=== PATIENT | male | born 1955 | race Caucasian/White ===

== ENCOUNTER 2020-12-20 06:36 | Outpatient (CLI) | payer MEDICARE, SELFPAY ==
--- NOTE | 2020-12-20 07:14 | ECHO_ITS ---
Patient Info Name: Dex Talbot Age: 65 years : 1955 Gender: Male Ht: 73 in Wt: 206 lbs BSA: 2.21 m2 HR: 123 bpm BP: 133 / 109 mmHg Technical Quality: Good Exam Date: 12/20/2020 7:17 AM Exam Location: [facility] Patient Status: Outpatient Admit Date: 12/20/2020 Staff Ordering Physician: Chandu Napier DO Senior Foreman: Josr Benítez RDCS, RT Attending Provider: Chandu Napier DO Referring Physician: Karthikeyan DENIS; Exam Type: CA echo doppler color flow Study Info Indications I48.0 - Paroxysmal atrial fibrillation Complete two-dimensional, color flow and Doppler transthoracic echocardiogram is performed. Summary 1. Complete two-dimensional, color flow and Doppler transthoracic echocardiogram is performed. 2. Left ventricular chamber dimension is normal. 3. Left ventricular systolic function is normal, estimated at 55-60%. 4. There is mildly increased left ventricular wall thickness. 5. Left ventricular septal wall motion is abnormal with septal motion related to bundle branch block. 6. The left ventricular diastolic function is normal. 7. E/e' 7 is not elevated. 8. Right ventricular systolic function is mildly reduced and with abnormal TAPSE 1.5 cm. 9. Left atrial chamber dimension is moderately enlarged. 10. There is mild aortic valve sclerosis. 11. The mitral valve has mildly calcified annulus. 12. There is mild mitral valve regurgitation. 13. There is trace tricuspid valve regurgitation. 14. No pulmonary hypertension, estimated pulmonary arterial systolic pressure is 32 mmHg. 15. Dilated inferior vena cava with >50% collapse upon inspiration consistent with elevated right atrial pressure, 10 mmHg. 16. Atrial fibrillation. Left Ventricle E/e' 7 is not elevated. Atrial fibrillation. Left ventricular chamber dimension is normal. Left ventricular systolic function is normal, estimated at 55-60%. There is mildly increased left ventricular wall thickness. Left ventricular septal wall motion is abnormal with septal motion related to bundle branch block. The left ventricular diastolic function is normal. Right Ventricle Right ventricular systolic function is mildly reduced and with abnormal TAPSE 1.5 cm. Right ventricular chamber dimension is normal. Left Atria Left atrial chamber dimension is moderately enlarged. Right Atria Right atrial chamber dimension is normal. Aortic Valve The aortic valve is trileaflet. There is mild aortic valve sclerosis. There is no aortic valve stenosis. There is no aortic valve regurgitation. Pulmonic Valve There is no pulmonic regurgitation. Mitral Valve The mitral valve has mildly calcified annulus. There is no mitral valve stenosis. There is mild mitral valve regurgitation. Tricuspid Valve There is trace tricuspid valve regurgitation. No pulmonary hypertension, estimated pulmonary arterial systolic pressure is 32 mmHg. Pericardium/Pleural There is no pericardial effusion. Inferior Vena Cava Dilated inferior vena cava with >50% collapse upon inspiration consistent with elevated right atrial pressure, 10 mmHg. Aorta The aortic root size at the sinus of Valsalva is normal. Left Ventricular Outflow Tract Name Value Normal LVOT 2D
== END 2020-12-20 06:37 | disposition home or self-care (01) ==
PROVIDERS: PCP Internal Medicine; Visit Provider Internal Medicine Cardiovascular Disease
DX: I48.0 Paroxysmal atrial fibrillation (principal); I34.0 Nonrheumatic mitral (valve) insufficiency; I36.1 Nonrheumatic tricuspid (valve) insufficiency; I35.8 Other nonrheumatic aortic valve disorders
CPT/HCPCS: 93306

== ENCOUNTER → 2021-02-22 07:39 | Outpatient (CLI) | payer MEDICARE, SELFPAY ==
[2021-02-22 19:22] LABS: SARS-CoV-2 RNA PCR Negative
== END ==
PROVIDERS: PCP Internal Medicine; Visit Provider Internal Medicine Gastroenterology
DX: Z01.812 Encounter for preprocedural laboratory examination (principal); Z20.822 Contact with and (suspected) exposure to COVID-19
CPT/HCPCS: C9803; U0003; U0005

== ENCOUNTER 2021-02-25 00:58 | Day surgery (SDC) | payer MEDICARE, SELFPAY ==
[2021-02-15 09:59] VITALS: BMI 26.4
[2021-02-25] VITALS (9 sets, daily range): BP systolic 104–135; BP diastolic 78–102; PULSE 92–127; RESP 18–26; TEMP 36.4; O2SAT 97–100; BMI 26.7
[2021-02-25] MEDS: LACTATED RINGERS 1,000 ML 150 ML IV CONT (10:24)
--- NOTE | 2021-02-25 10:42 | WPDANESEPPF ---
Anes - Initial Pre Proc Eval Procedure: Operation Date: 02/25/21 10:45 Proposed Procedures p Screening Colonoscopy - Parviz Hampton MD Date/Time: 02/25/21 10:42 Surgeon: Parviz Hampton MD Pre Op Diagnosis: hx colon polyps Patient Data Age: 65 Gender: M Height: 6 ft 1 in Weight: 92 kg Last Vital Signs Temp 36.4 C L 02/25/21 10:18 Pulse 94 02/25/21 10:18 Resp 18 02/25/21 10:18 BP 135/102 H 02/25/21 10:18 Pulse Ox 99 02/25/21 10:18 Allergies Allergy/AdvReac Type Severity Reaction Status Date / Time No Known Allergies Allergy Mild Verified 02/25/21 10:14 Home Medications Medication Instructions Recorded Confirmed Type multivit with min-folic 1 tablet PO DAILY 09/15/19 02/25/21 History acid-lutein 400 mcg-250 mcg chewable tablet apixaban [Eliquis] 5 mg PO BID 02/15/21 02/25/21 History atorvastatin 80 mg PO DAILY 02/15/21 02/25/21 History carvedilol 6.25 mg PO BID 02/15/21 02/25/21 History levetiracetam 750 mg PO BID 02/15/21 02/25/21 History Patient hx anesthesia problems: none Family hx anesthesia problems: none PMFSH Past Medical History Medical History Current moderate episode of major depressive disorder without prior episode Essential hypertension Expressive aphasia H/O completed stroke Hx of retinal detachment Hyperlipidemia LDL goal <70 Paroxysmal atrial fibrillation Protein S deficiency Seizure disorder Social History Social History Smoking packs per day: 1 Smoking cigarettes per day: 20.0 Years smoked: 25 Smoking pack-years: 25.00 Smoking status: Former smoker Tobacco type: cigarettes Alcohol intake: current Drinks per week: 21 Living arrangements: with family Spiritual care concerns: No Anes - Eval Final PreProcedure Day of Procedure 02/25/21 10:42 Patient weight: overweight Heart: regular rate and rhythm Lungs: clear to auscultation Airway: Mallampati scale class II Neurological: alert and oriented Last oral intake: >/= 8 hours ASA classification: III Emergent: no Anesthetic plan: proceed Anesthesia type and monitoring: general GIVS and standard monitoring Informed Consent: The patient's anesthetic plan and its attendant risks and benefits were discussed with the patient/family/POA. Questions were solicited and answers provided to the satisfaction of the patient/family/POA.
--- NOTE | 2021-02-25 10:46 | PM.HPGS ---
History of Present Illness History of Present Illness Consent: Risks, benefits, and alternatives have been discussed and questions answered. Patient agrees to proceed with procedure. Chief complaint: hx colon polyps Narrative: Dex Talbot is a 65 year old male with colon polyps 7 years ago. Review of Systems Constitutional: Constitutional: Denies headache(s) and Denies weakness Eyes: Eyes: Denies blurry vision ENT: Reports Normal hearing present, Denies headache(s) and Denies neck pain Cardiovascular: Cardiovascular: Denies chest pain and Denies dyspnea Respiratory: Respiratory: Denies dyspnea Gastrointestinal: Gastrointestinal: Reports no additional gastrointestinal complaints Genitourinary: Genitourinary: Denies dysuria Musculoskeletal: Musculoskeletal: Denies neck pain Integumentary/Breasts: Skin/Breast: Denies dry skin Neurologic: Reports Normal hearing present, Denies headache(s) and Denies weakness Psychiatric: Psychiatric: Denies anxiety Endocrine: Endocrine: Denies change in body appearance Hematologic/Lymphatic: Hematologic/Lymphatic: Denies easy bleeding Allergic/Immunologic: Allergic/Immunologic: Denies urticaria PMFSH Past Medical History Medical History (Updated 02/25/21 @ 10:46 by Parviz Hampton MD) Colon polyp Current moderate episode of major depressive disorder without prior episode Essential hypertension Expressive aphasia H/O completed stroke Hx of retinal detachment Hyperlipidemia LDL goal <70 Paroxysmal atrial fibrillation Protein S deficiency Seizure disorder Social History Social History Smoking packs per day: 1 Smoking cigarettes per day: 20.0 Years smoked: 25 Smoking pack-years: 25.00 Smoking status: Former smoker Tobacco type: cigarettes Alcohol intake: current Drinks per week: 21 Living arrangements: with family Spiritual care concerns: No Meds Home Medications and Allergies Home Medications Medication Instructions Recorded Confirmed Type multivit with min-folic 1 tablet PO DAILY 09/15/19 02/25/21 History acid-lutein 400 mcg-250 mcg chewable tablet apixaban [Eliquis] 5 mg PO BID 02/15/21 02/25/21 History atorvastatin 80 mg PO DAILY 02/15/21 02/25/21 History carvedilol 6.25 mg PO BID 02/15/21 02/25/21 History levetiracetam 750 mg PO BID 02/15/21 02/25/21 History Allergies Allergy/AdvReac Type Severity Reaction Status Date / Time No Known Allergies Allergy Mild Verified 02/25/21 10:14 Vital Signs Vital Signs - 24 hr 02/25/21 10:18 Temperature 97.5 F L Pulse Rate 94 Respiratory Rate 18 Blood Pressure 135/102 H Pulse Oximetry 99 Exam Const: General: comfortable and no acute distress HENMT: General nose exam: Normal nares present Eyes: General: appearance normal, both eyes and all related structures Neck: Neck: no JVD Resp: Auscultation: clear to auscultation bilaterally Cardio: Rate: regular rate Rhythm: regular rhythm GI: Inspection: non-distended GI Palp: Yes Soft to palpation Skin: General skin exam: normal color Neuro: General: gait normal Speech: normal speech Extrem: General: normal to inspection Psych: Mental Status: mental status grossly normal Assessment and Plan Assessment and plan (1) Colon polyp: Code(s): K63.5 - Polyp of colon Status: Acute Assessment and Plan: colonoscopy
[2021-02-25] MEDS: METOPROLOL TARTRATE INJ 5 MG/5 ML VIAL IV PUSH (12:00)
--- NOTE | 2021-02-25 12:27 | SUR.PHASEII ---
Heart rate 92 after IV Metoprolol. Ok to discharge home per Dr. Costello (anesthesiology).
== END 2021-02-25 12:30 | disposition home or self-care (01) ==
PROVIDERS: PCP Internal Medicine; Visit Provider Internal Medicine Gastroenterology
PROC: 0DJD8ZZ Inspection of Lower Intestinal Tract, Via Natural or Artificial Opening Endoscopic (ICD-10-PCS; CPT 45378; principal; 2021-02-25 10:45)
DX: Z12.11 Encounter for screening for malignant neoplasm of colon (principal); D12.3 Benign neoplasm of transverse colon; D12.0 Benign neoplasm of cecum; K57.30 Diverticulosis of large intestine without perforation or abscess without bleeding; I10 Essential (primary) hypertension; I69.320 Aphasia following cerebral infarction; E78.5 Hyperlipidemia, unspecified; I48.0 Paroxysmal atrial fibrillation; D68.59 Other primary thrombophilia; R56.9 Unspecified convulsions; F32.89 Other specified depressive episodes; Z87.891 Personal history of nicotine dependence; Z79.02 Long term (current) use of antithrombotics/antiplatelets
CPT/HCPCS: 45385; 88305; C9803; J2704; J7120; U0003; U0005

== ENCOUNTER 2022-07-02 07:56 | Outpatient (CLI) | payer MEDICARE, SELFPAY ==
--- NOTE | ~2022-07-02 | NM_ITS ---
EXAMINATION: NM ekaterina stress w perfusion DATE: 07/02/2022 10:01 CDT INDICATION: Dyspnea. TECHNIQUE: Rest images were obtained following intravenous administration of 10 mCi Tc99m tetrofosmin (Myoview). The patient was infused intravenously with Lexiscan (regadenoson). Then, 34.7 mCi Tc99m t etrofosmin (Myoview) was administered intravenously, and stress images were obtained. Data was recons tructed into short axis and horizontal and vertical long axis SPECT images. Gated SPECT images were a lso obtained. COMPARISON: None. FINDINGS: There is no definite reversible or fixed perfusion abnormality to suggest ischemia or infar ction. There is no segmental wall motion abnormality. Left ventricular ejection fraction measures 6 3%. IMPRESSION: 1. No definite ischemia or infarct. 2. Normal left ventricular ejection fraction measuring 63%. Reviewed, dictated and finalized at location B.
--- NOTE | 2022-07-02 08:59 | EST_ITS ---
Patient Info Name: Dex Talbot Age: 66 years : 1955 Gender: Male Ht: 73 in Wt: 200 lbs BSA: 2.17 m2 Exam Date: 07/02/2022 9:03 AM Exam Location: [facility] Stress Patient Status: Outpatient Admit Date: 07/02/2022 Staff Ordering Physician: Chandu Napier DO Attending Provider: Chandu Napier DO Exercise Technologist: Josr Benítez RDCS, RT Exercise Physician: Chandu Napier DO Exam Type: CA stress ekaterina w NM Study Info A regadenoson stress test was performed. Summary 1. 1. Negative lexiscan stress test for ischemic ST changes by ECG criteria. 2. 2. Stable hemodynamics throughout the test. 3. 3. Nuclear scan to follow and will be reported separately. Please correlate with it. 4. 4. Patient informed of the above results. Protocol: Lexiscan Stress ECG Details Stage: REST Duration (min): 1 min : 54 sec HR (bpm): 100 SBP (mmHg): 135 DBP (mmHg): 91 Stage: REST Duration (min): 9 min : 0 sec HR (bpm): 105 SBP (mmHg): 135 DBP (mmHg): 91 Stage: STAGE 1 Duration (min): 1 min : 0 sec HR (bpm): 107 SBP (mmHg): 157 DBP (mmHg): 110 Stage: RECOVERY Duration (min): 1 min : 0 sec HR (bpm): 121 SBP (mmHg): 157 DBP (mmHg): 110 Stage: RECOVERY Duration (min): 2 min : 0 sec HR (bpm): 124 SBP (mmHg): 158 DBP (mmHg): 110 Stage: RECOVERY Duration (min): 2 min : 47 sec HR (bpm): 119 SBP (mmHg): 159 DBP (mmHg): 111 Rest HR: 105 bpm Peak HR: 133 bpm Rest Sys BP: 135 mmHg Peak Sys BP: 159 mmHg Max Pred HR: 153 bpm % Max Pred HR: 87 % Target HR: 130 bpm Max RPP: 21,147 bpm*mmHg Termination Reason: Completed protocol Cardiac Symptoms: Shortness of breath Total Time: 1 min : 0 sec Rest Dunn BP: 91 mmHg Peak Dunn BP: 111 mmHg Total Dose: 0.4 mg Resting ECG Atrial fibrillation. Stress ECG No ST changes. Arrhythmias None. Report Signatures
== END 2022-07-02 07:57 | disposition home or self-care (01) ==
PROVIDERS: PCP Internal Medicine; Visit Provider Internal Medicine Cardiovascular Disease
DX: R06.09 Other forms of dyspnea (principal)
CPT/HCPCS: 78452; 93017; A9502; J2785

== ENCOUNTER 2022-07-24 18:09 | Inpatient (IN) | payer MEDICARE, SELFPAY ==
[2022-07-24] VITALS (21 sets, daily range): BP systolic 126–183; BP diastolic 70–100; PULSE 44–51; RESP 9–19; TEMP 36.6–36.8; O2SAT 93–100
--- NOTE | ~2022-07-24 | CT_ITS ---
EXAMINATION: CT brain wo con INDICATION: Head injury on blood thinners COMPARISON: None TECHNIQUE: Standard unenhanced head CT. The dose-length product (DLP) was 681.00 mGy-cm. The mA was a djusted according to patient size. Iterative reconstruction technique was employed. FINDINGS: There is no acute intraparenchymal hemorrhage. No evidence of mass lesion. No evidence of a cute infarction. Again noted is an old infarct in the left middle cerebral artery distribution. There is mild periventricular and subcortical hypodensity probably related to small vessel ischemic diseas e. There is mild prominence of the sulci and ventricles related to cerebral atrophy. Intracranial jacoby cified cerebral atherosclerosis is noted. There are no extra-axial collections. There is no mass effe ct or midline shift. Changes in the globes are likely from ocular lens surgery. There is a right fron carlos scalp hematoma. The visualized sinuses and mastoid air cells are well aerated. IMPRESSION: 1. Right frontal scalp hematoma without acute intracranial abnormality. 2. Age related findings. 3. Chronic infarct in the left middle cerebral artery distribution. Reviewed, dictated and finalized at location A.
--- NOTE | ~2022-07-24 | CT_ITS ---
EXAMINATION: CT brain wo con DATE: 07/24/2022 18:49 INDICATION: Head injury. TECHNIQUE: Computed tomography (CT) of the head was performed without intravenous contrast. The mA wa s adjusted according to patient size. Iterative reconstruction technique was employed. The dose-lengt h product was 681.00 mGy-cm. COMPARISON: Head CT 06/22/2017 FINDINGS: There is old infarct in left frontotemporal parietal region and left insula. There is no in tracranial hemorrhage, acute infarction, or abnormal intracranial mass lesion. There is mild ex vacuo dilatation of left lateral ventricle. There are likely changes of ocular lens replacement surgeries. There is a right frontal lateral scalp hematoma. There is mild mucosal thickening in the paranasal s inuses. The mastoid air cells are normal. IMPRESSION: 1. Old infarct in the expected distribution of left middle cerebral artery. Reviewed, dictated and finalized at location A.
--- NOTE | ~2022-07-24 | CT_ITS ---
EXAMINATION: CTA chest PE protocol DATE: 07/24/2022 20:48 INDICATION: Syncope. TECHNIQUE: Computed tomography angiography (CTA) of the chest was performed with 100 mL Omnipaque-350 intravenous contrast timed to evaluate the pulmonary arteries. Coronal maximum intensity projection 3D-reconstructions were created by the technologist. Automated exposure control and iterative reconst ruction technique were employed. The dose-length product was 438.74 mGy-cm. COMPARISON: Chest 2 views 07/24/2022 FINDINGS: The lungs demonstrate mild atelectasis. There is smooth septal thickening, consistent mild pulmonary edema. No pleural effusion. There is left atrial enlargement of the heart. There are babcock ry artery calcifications. No pericardial effusion. There is no pulmonary embolus. There is mild bilat eral hilar lymphadenopathy. There is bilateral gynecomastia. There is mild thoracic spondylosis. IMPRESSION: 1. No pulmonary embolus. 2. Mild pulmonary edema. 3. Mild bilateral hilar lymphadenopathy, likely reactive. 4. Left atrial enlargement of the heart. Reviewed, dictated and finalized at location A.
--- NOTE | ~2022-07-24 | CT_ITS ---
EXAMINATION: CT facial & cervical spine wo DATE: 07/24/2022 18:49 INDICATION: Head injury. TECHNIQUE: Computed tomography (CT) of the maxillofacial region and cervical spine was performed with out intravenous contrast. Automated exposure control and iterative reconstruction technique were empl oyed. The dose-length product was 462.95 mGy-cm. COMPARISON: None FINDINGS: MAXILLOFACIAL CT: There is a right frontal lateral scalp hematoma. There are likely changes of ocular lens replacement surgeries. There is right cheek soft tissue swelling. There is mild mucosal thickening in the paranas al sinuses. There are periapical lucencies at multiple maxillary teeth. Bone alignment is normal. No fracture. CERVICAL SPINE CT: There is kyphosis of cervical spine. Vertebral body heights are normal. There is mildly decreased dis c height at C3-C4 and C4-C5, moderately decreased disc height at C5-C6, and mildly decreased disc hei ght at C6-C7. The following disc levels are specifically discussed: C2-C3: There is no uncovertebral joint osteoarthritis. There is mild bilateral facet joint osteoarthr itis. There is no neural foraminal stenosis. There is no central canal stenosis. C3-C4: There is moderate bilateral uncovertebral joint osteoarthritis. There is severe left facet pratibha nt osteoarthritis. There is mild right and moderate left neural foraminal stenosis. There is mild stuart tral canal stenosis. C4-C5: There is mild right and severe left uncovertebral joint osteoarthritis. There is mild right an d severe left facet joint osteoarthritis. There is moderate left neural foraminal stenosis. There is mild central canal stenosis. C5-C6: There is severe right and mild left uncovertebral joint osteoarthritis. There is moderate righ t facet joint osteoarthritis. There is moderate right and mild left neural foraminal stenosis. There is mild central canal stenosis. C6-C7: There is mild bilateral uncovertebral joint osteoarthritis. There is mild bilateral facet join t osteoarthritis. There is no neural foraminal stenosis. There is mild central canal stenosis. C7-T1: There is no uncovertebral joint osteoarthritis. There is severe bilateral facet joint osteoart hritis. There is mild left neural foraminal stenosis. There is no central canal stenosis. IMPRESSION: 1. No fracture. 2. Moderate cervical spondylosis. Reviewed, dictated and finalized at location A.
--- NOTE | ~2022-07-24 | XR_ITS ---
EXAMINATION: XR chest 2V DATE: 07/24/2022 19:19 INDICATION: Lightheadedness. Fall. TECHNIQUE: Frontal and lateral views of the chest were obtained. COMPARISON: Chest single view 06/22/2017 FINDINGS: There is mild atelectasis in the lower lung zones. No pleural effusion or pneumothorax. Car diomegaly is noted. IMPRESSION: 1. Mild atelectasis in the lower lung zones. 2. Cardiomegaly. Reviewed, dictated and finalized at location A.
--- NOTE | 2022-07-24 18:58 | ECG_ITS ---
Measurements Intervals [place] Rate: 46 P: 37 VT: 183 QRS: 59 QRSD: 96 T: 60 QT: 520 QTc: 458 Interpretive Statements SINUS BRADYCARDIA POSSIBLE LEFT ATRIAL ENLARGEMENT [-0.1mV P-WAVE IN V1/V2] CANNOT RULE OUT SEPTAL MYOCARDIAL INFARCTION , OF INDETERMINATE AGE [40+ ms Q WAVE IN V1/V2] NO PREVIOUS ECG AVAILABLE FOR COMPARISON Electronically Signed On 07-25-2022 13:55:33 CDT by Brant Escalera M.D.
--- NOTE | 2022-07-24 19:12 | ED.HEATRA ---
HPI - Head Injury General Chief complaint: Head Injury Stated complaint: fall, head injury Time Seen by Provider: 07/24/22 18:29 History of Present Illness HPI Narrative: Patient is a 66-year-old male with a history of paroxysmal atrial fibrillation, prior CVA on Eliquis here for evaluation after syncopal episode. Patient states that he went from sitting to standing when he felt lightheaded, fell down and hit his head on the floor. He denies losing consciousness. States that he now has swelling under his right eye and into his right forehead in addition to a small laceration to his right scalp. Patient has never had a syncopal episode in the past. Tetanus is up-to-date. He saw Dr. Napier, cardiology, in office 2 days ago and had his metoprolol dosing halved to due to low heart rate. Denies any preceding chest pain, shortness of breath, palpitations, headaches. Related Data Home Medications Medication Instructions Recorded Confirmed multivit with min-folic 1 tablet PO DAILY 09/15/19 07/25/22 acid-lutein 400 mcg-250 mcg chewable tablet (Centrum Silver) atorvastatin 80 mg tablet (Lipitor) 80 mg PO DAILY 07/25/22 07/25/22 Allergies Allergy/AdvReac Type Severity Reaction Status Date / Time No Known Allergies Allergy Mild Verified 07/24/22 18:33 Review of Systems Review of Systems: Gen: Reports syncopal episode. Eyes: Denies eye pain or visual change ENT: Denies congestion Respiratory: Denies shortness of breath or cough CV: Denies chest pain or palpitations GI: Denies abdominal pain nausea, emesis or diarrhea : denies burning, urgency, frequency or hematuria Musculoskeletal: Denies back pain or muscle pain Neuro: Denies numbness, tingling, weakness or focal weakness Skin: Denies rash Except as documented, all other systems reviewed and negative [facility] Past Medical History Medical History Colon polyp Current moderate episode of major depressive disorder without prior episode Essential hypertension Expressive aphasia H/O completed stroke Hx of retinal detachment Hyperlipidemia LDL goal <70 Paroxysmal atrial fibrillation Protein S deficiency Seizure disorder Family History Family History (Updated 07/25/22 @ 00:41 by SINCERE Zhou) Mother Heart disease Diabetes mellitus Son History of blood clots Social History Social History Smoking packs per day: 2 Smoking cigarettes per day: 40.0 Years smoked: 30 Smoking pack-years: 60.00 Smoking status: Former smoker Tobacco type: cigarettes Second hand tobacco smoke exposure: No Smoking end date: 10/05/88 Alcohol intake: current Drinks per week: 18 Substance use: never Substance use type: does not use Spiritual care concerns: No Has the Lack of Transportation Kept You From Medical Appointments or From Getting Medications?: No Within the Past 12 Months, Were You Worried Whether Your Food Would Run Out Before You Got Money to Buy More?: Never True What is Your Housing Situation Today?: I Have Housing Are You Worried That in the Next 2 Months, You May Not Have Your Own Housing to Live In?: No Do You Have Trouble Paying Your Heating Or Electricity Bill?: No Do You Have Trouble Paying For Medicines?: No Are You Currently Unemployed and Looking for Work?: No Highest Level of Education Completed: High School Diploma/GED Do You Have Trouble With Childcare or the Care of a Family Member?: No Exam Narrative: APPEARANCE: Well appearing, no pain in distress, well-nourished. Head: Patient has a large hematoma to the right forehead and underneath his right eye. EYES: PERRLA/EOMI, conjunctivae clear NOSE: No nasal drainage EARS: External ear normal in appearance THROAT: Oropharynx is clear. Mucous membranes are moist. NECK: Supple. No adenopathy, no masses. RESPIRATORY: Airway patent, respirations no
[2022-07-24 19:58] LABS: Basophils Percent Auto 0.4 % (0.2-1.2); Eosinophils Absolute Auto 0.1 K/mm3 (0-0.3); Eosinophils Percent Auto 1.4 % (0-4.4); Hematocrit 41.6 % (42.0-52.0); Hemoglobin 13.8 g/dL (14.0-18.0); Immature Granulocyte Absolute 0.02 K/mm3 (0.00-0.031); Immature Granulocyte Percent A 0.2 % (0-0.5); Lymphocytes Absolute Auto 1.84 K/mm3 (0.9-3.2); Lymphocytes Percent Auto 20.5 % (18.3-44.2); Mean Corpuscular HGB Conc 33.2 g/dl (32-36); Mean Corpuscular Hemoglobin 31.9 pg (26-34); Mean Corpuscular Volume 96.1 fl (80-100); Mean Platelet Volume 10.7 fl (7.4-10.4); Monocytes Absolute Auto 0.8 K/mm3 (0.1-0.6); Monocytes Percent Auto 8.6 % (2.6-8.5); Neutrophils Absolute Auto 6.2 K/mm3 (1.3-6.7); Neutrophils Percent Auto 68.9 % (45.5-73.1); Platelet Count Result 204 k/mm3 (150-375); Red Blood Count 4.33 M/mm3 (4.6-6.20)
[2022-07-24 20:07] LABS: Alanine Aminotransferase 28 U/L (6-50); Albumin Level 4.4 g/dL (3.5-5.1); Alkaline Phosphatase 70 U/L (38-126); Anion Gap 15 mmol/L (8-16); Aspartate Amino Transferase 29 U/L (17-59); Bilirubin,Total 0.5 mg/dL (0.2-1.3); Blood Urea Nitrogen 7 mg/dL (9-20); Calcium 9.1 mg/dL (8.4-10.2); Carbon Dioxide 26 mmol/L (22-30); Chloride 101 mmol/L (98-107); Estimated CRCL calculation 88 ml/min; Estimated Glomerular Filt Rate > 60; Glucose 97 mg/dL (65-110); Potassium 3.8 mmol/L (3.4-5.0); Sodium 142 mmol/L (137-145)
[2022-07-24 20:09] LABS: INR 1.3; Partial Thromboplastin Time 33.5 SECONDS (22.3-36.8); Prothrombin Time 15.5 Seconds (11.1-14.7)
[2022-07-24 20:17] LABS: D Dimer 2.57 ug/mL (<0.48)
--- NOTE | 2022-07-24 21:14 | PM.IMHP ---
H&P: HPI History of Present Illness Date/Time: 07/24/22 21:14 Chief Complaint: Near-syncope Narrative: This is a 66-year-old male with past medical history significant for atrial fibrillation, rate controlled and anticoagulated, patient has been undergoing medications adjustment he was have visiting at a local bar when he collapsed he was able to catch himself before by holding his arms out however he struck his face on the way down according to patient he did not lose consciousness. 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 In emergency room patient was found to be bradycardic. Patient has been admitted for further evaluation management and treatment. [facility] Past Medical History Medical History Colon polyp Current moderate episode of major depressive disorder without prior episode Essential hypertension Expressive aphasia H/O completed stroke Hx of retinal detachment Hyperlipidemia LDL goal <70 Paroxysmal atrial fibrillation Protein S deficiency Seizure disorder Family History Family History (Updated 07/25/22 @ 00:41 by SINCERE Zhou) Mother Heart disease Diabetes mellitus Son History of blood clots Social History Social History Smoking packs per day: 2 Smoking cigarettes per day: 40.0 Years smoked: 30 Smoking pack-years: 60.00 Smoking status: Former smoker Tobacco type: cigarettes Second hand tobacco smoke exposure: No Smoking end date: 10/05/88 Alcohol intake: current Drinks per week: 18 Substance use: never Substance use type: does not use Spiritual care concerns: No Has the Lack of Transportation Kept You From Medical Appointments or From Getting Medications?: No Within the Past 12 Months, Were You Worried Whether Your Food Would Run Out Before You Got Money to Buy More?: Never True What is Your Housing Situation Today?: I Have Housing Are You Worried That in the Next 2 Months, You May Not Have Your Own Housing to Live In?: No Do You Have Trouble Paying Your Heating Or Electricity Bill?: No Do You Have Trouble Paying For Medicines?: No Are You Currently Unemployed and Looking for Work?: No Highest Level of Education Completed: High School Diploma/GED Do You Have Trouble With Childcare or the Care of a Family Member?: No Meds Home Medications and Allergies Home Medications Medication Instructions Recorded Confirmed Type multivit with min-folic 1 tablet PO DAILY 09/15/19 07/25/22 History acid-lutein 400 mcg-250 mcg chewable tablet (Centrum Silver) apixaban 5 mg tablet (Eliquis) 5 mg PO BID #180 tabs 02/11/22 07/25/22 Rx levetiracetam 750 mg tablet 750 mg PO BID #180 tabs 03/31/22 07/25/22 Rx famotidine 20 mg tablet 20 mg PO DAILY #90 tabs 05/28/22 07/25/22 Rx flecainide 100 mg tablet 100 mg PO BID #180 tabs 07/02/22 07/25/22 Rx metoprolol tartrate 25 mg tablet 12.5 mg PO BID #30 tabs 07/21/22 07/25/22 Rx atorvastatin 80 mg tablet (Lipitor) 80 mg PO DAILY 07/25/22 07/25/22 History Allergies Allergy/AdvReac Type Severity Reaction Status Date / Time No Known Allergies Allergy Mild Verified 07/24/22 18:33 Vital Signs Vital Signs - 24 hr 07/24/22 18:14 07/24/22 19:26 07/24/22 19:27 Temperature 97.9 F Pulse Rate 50 L 46 L 46 L Respiratory Rate 18 10 L 16 Blood Pressure 183/100 H 155/87 H Pulse Oximetry 99 Oxygen Delivery Room Air 07/24/22 19:28 07/24/22 19:30 07/24/22 19:31 Temperature Pulse Rate 45 L 46 L 46 L Respiratory Rate 13 9 L 12 Blood Pressure 150/85 H 146/85 H Pulse Oximetry Oxygen Delivery 07/24/22 19:34 07/24/22 19:44
[2022-07-24 23:15] LABS: SARS-CoV-2 RNA PCR Negative
[2022-07-25] VITALS (13 sets, daily range): BP systolic 113–161; BP diastolic 53–96; PULSE 55–122; RESP 16–20; TEMP 36.5–37.3; O2SAT 94–99; BMI 26.7
--- NOTE | 2022-07-25 | ECHO_ITS ---
Patient Info Name: Dex Talbot Age: 66 years : 1955 Gender: Male Ht: 73 in Wt: 202 lbs BSA: 2.18 m2 HR: 106 bpm BP: 154 / 78 mmHg Heart Rhythm: Atrial Flutter Technical Quality: Fair Exam Date: 07/25/2022 7:47 AM Exam Location: [facility] Card Pulmonary Patient Status: Outpatient Admit Date: 07/24/2022 Staff Ordering Physician: Chandu Napier DO Pharmacist Aide: Nataly Alvarado RDCS Attending Provider: Ray Qiu MD Referring Physician: Karthikeyan DENIS; Exam Type: CA echo doppler color flow Study Info Indications R55 - Syncope and collapse Complete two-dimensional, color flow and Doppler transthoracic echocardiogram is performed. Summary 1. Complete two-dimensional, color flow and Doppler transthoracic echocardiogram is performed. 2. Left ventricular chamber dimension is normal. 3. Left ventricular systolic function is normal, estimated at 60-65%. 4. There is mildly increased left ventricular wall thickness. 5. The left ventricular diastolic function is abnormal. 6. E/e' 12 is mildly elevated. 7. There is mild aortic valve sclerosis. 8. No pulmonary hypertension, estimated pulmonary arterial systolic pressure is 32 mmHg. Left Ventricle E/e' 12 is mildly elevated. Left ventricular chamber dimension is normal. Left ventricular systolic function is normal, estimated at 60-65%. There is mildly increased left ventricular wall thickness. The left ventricular diastolic function is abnormal. Right Ventricle Right ventricular systolic function is normal and with normal TAPSE 1.8 cm. Right ventricular chamber dimension is normal. Left Atria Left atrial chamber dimension is normal. Right Atria Right atrial chamber dimension is normal. Aortic Valve The aortic valve is trileaflet. There is mild aortic valve sclerosis. There is no aortic valve stenosis. There is no aortic valve regurgitation. Pulmonic Valve There is no pulmonic regurgitation. Mitral Valve There is no mitral valve stenosis. There is no mitral valve regurgitation. Tricuspid Valve There is no tricuspid valve regurgitation. No pulmonary hypertension, estimated pulmonary arterial systolic pressure is 32 mmHg. Pericardium/Pleural There is no pericardial effusion. Inferior Vena Cava Normal inferior vena cava with >50% collapse upon inspiration consistent with normal right atrial pressure, 5 mmHg. Aorta The aortic root size at the sinus of Valsalva is normal. Left Ventricular Outflow Tract Name Value Normal LVOT Doppler LVOT Peak Gradient 4 mmHg LVOT Mean Gradient 2 mmHg LVOT VTI 17 cm LVOT VTI/AV VTI Ratio 0.7 Pulmonic Valve Name Value Normal RVOT Doppler RVOT Peak Gradient 2 mmHg PV Doppler PV Peak Gradient 3 mmHg Mi
--- NOTE | 2022-07-25 00:45 | ADMGEN ---
This patient, Dex Talbot, was admitted to IMU Room 206-02. Patient/family oriented to hospital policies and general routines including ID bracelet, bed and alarms, visiting hours, pain management, procedures, bathroom and other care routines, personal items, smoking policy, room service/diet, and visiting hours. Information on how to activate the Rapid Response Team has been discussed. Patient/Family are encouraged to report perceived risks to care and to ask questions if they do not understand what they are told or what they should do.
--- NOTE | 2022-07-25 08:13 | PM.CNCAR ---
Assessment and Plan Assessment and plan (1) Paroxysmal atrial fibrillation: Code(s): I48.0 - Paroxysmal atrial fibrillation Status: Acute Assessment and Plan: [id number] 4. On Eliquis.He went back into atrial fib/flutter now. He has not had Flecainide or Metoprolol since yesterday morning last dose. Resume lower dose of Flecainide 50 mg BID and resume Metoprolol Tartate 12.5 mg BID. EKG now. Check echo. (2) Hyperlipidemia LDL goal <70: Code(s): E78.5 - Hyperlipidemia, unspecified Status: Acute Assessment and Plan: On Atorvastatin. (3) Essential hypertension: Code(s): I10 - Essential (primary) hypertension Status: Acute Assessment and Plan: Stable. (4) Syncope: Code(s): R55 - Syncope and collapse Status: Acute Assessment and Plan: Either due to orthostatic syncope or seizure? HR is not slow enough to cause syncope. (5) Bradycardia: Code(s): R00.1 - Bradycardia, unspecified Status: Acute Assessment and Plan: HR as low as 40's bpm when in sinus rhythm. Decrease Flecainide 50 mg BID. Monitor HR today. History of Present Illness History of Present Illness Consult date/time: 07/25/22 08:13 Reason For Visit: syncope, bradycardia Narrative: 66 yr old man who who is my regular cardiology patient and a patient of Dr. Smith presents to ER for syncope. 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 States he was standing and passed out for a second and hit the floor on his face. Since starting Flecainide he noted more regular heart beats and no longer have SHEPHERD walking to his mailbox.? Previously, he had a stroke in 2017 prior to going on Eliquis, probably related to PAF.? He has some residual right sided weakness and some expressive aphasia. He can walk 1 mile without any problems. Reports he quit drinking coffee and has less palpitations. His apple watch shows he is having twice a day HR up to 120's then it would go back to 70 bpm later in the day.? Diltiazem caused some swelling and light colored stools so he stopped taking it.? Denies chest pain, sob, orthopnea, PND, edema, dizziness. Cardiovascular Procedures Echo/MUGA:: 12/20/20 Echo: EF 55-60%, mild LVH, RV dysfunction with TAPSE 1.5 cm, mod LAE, mild MR, trace TR. Electrophysiology:: 07/21/22 EKG: Sinus bradycardia at 43 bpm, QTc 441 ms. 07/11/22 EKG: Atrial fibrillation at 94 bpm, QTc 456 ms. 12/04/20 EKG: Atrial fibrillation at 128 bpm. 07/21/17 26 days event monitor shows predominant rhythm is sinus rhythm. HR range 45-177 bpm; average 66 bpm; 4% atrial fib burden with 20 episodes, longest 10 hours and fastest 175 bpm. Stress Tests:: 07/02/22 Lexiscan myoview: Negative. 11/23/17 MRI brain: Old infarct of left parietal lobe. Review of Systems Review of Systems: All systems reviewed & are unremarkable except as noted in HPI and below Constitutional: Constitutional: Reports as per HPI, Denies chills and Denies fever(s) Cardiovascular: Cardiovascular: Denies as per HPI, Denies chest pain, Denies irregular heart rhythm and Denies leg edema Respiratory: Respiratory: Denies as per HPI and Denies dyspnea Gastrointestinal: Gastrointestinal: Reports as per HPI and Denies abdominal pain Genitourinary: Genitourinary: Reports as per HPI and Denies dysuria Musculoskeletal: Musculoskeletal: Reports as per HPI Neurologic: Reports as per HPI, Reports dizziness and Reports syncope PMFSH Past Medical History Medical History Colon polyp Current moderate episode of major depressive disorder without prior episode Essential hypertension Expressive aphasia H/O completed stroke Hx of retinal detachment Hyperlipidemia LDL goal <70 Paroxysmal atrial fibrillation Protein S deficiency Seizure d
--- NOTE | 2022-07-25 08:23 | ECG_ITS ---
Measurements Intervals [place] Rate: 104 P: MA: 0 QRS: 34 QRSD: 101 T: 34 QT: 393 QTc: 518 Interpretive Statements ATRIAL FIBRILLATION WITH RAPID VENTRICULAR RESPONSE MINIMAL ST DEPRESSION [0.025+ mV ST DEPRESSION] ABNORMAL RHYTHM ECG COMPARED TO ECG 07/24/2022 19:29:53 ATRIAL FIBRILLATION REPLACES SINUS RHYTHM Electronically Signed On 07-25-2022 14:06:11 CDT by Brant Escalera M.D.
--- NOTE | 2022-07-25 12:20 | PM.IMPN ---
Progress Note: A&P Assessment and Plan (1) Postural dizziness with near syncope: Code(s): R42 - Dizziness and giddiness; R55 - Syncope and collapse Status: Acute Assessment and Plan: Appreciate Cardiology input. Med medications have been adjusted. Will continue to monitor. Workup still pending. (2) Sinus bradycardia: Code(s): R00.1 - Bradycardia, unspecified Status: Acute (3) Paroxysmal atrial fibrillation: Code(s): I48.0 - Paroxysmal atrial fibrillation Status: Acute (4) Gastro-esophageal reflux disease without esophagitis: Onset Date: 04/01/19 Code(s): K21.9 - Gastro-esophageal reflux disease without esophagitis Status: Acute (5) Prostate cancer: Code(s): C61 - Malignant neoplasm of prostate Status: Acute (6) Seizure disorder: Code(s): G40.909 - Epilepsy, unspecified, not intractable, without status epilepticus Status: Acute Subjective Date/time seen: 07/25/22 12:20 feeling better. Exam Narrative: General: alert and oriented Psych: appropriate mood nad affect Eyes: PERRLA Neck: Trachea midline, no new lesions Skin: no changes Lungs: CTA Cardiac: Normal S1,S2, no MGR ABD: soft, nd, nt, nbs Ext: no new lesions, no cce Vasc: Pulses intact Objective Data Vital Signs Vital Signs: Vital Signs - 24 hr 07/24/22 18:14 07/24/22 19:26 07/24/22 19:27 Temperature 97.9 F Pulse Rate 50 L 46 L 46 L Respiratory Rate 18 10 L 16 Blood Pressure 183/100 H 155/87 H Pulse Oximetry 99 Oxygen Delivery Room Air 07/24/22 19:28 07/24/22 19:30 07/24/22 19:31 Temperature Pulse Rate 45 L 46 L 46 L Respiratory Rate 13 9 L 12 Blood Pressure 150/85 H 146/85 H Pulse Oximetry Oxygen Delivery 07/24/22 19:34 07/24/22 19:44 07/24/22 19:44 Temperature Pulse Rate 51 L 46 L 49 L Respiratory Rate 19 Blood Pressure 158/88 H 150/85 H 148/85 H Pulse Oximetry Oxygen Delivery 07/24/22 19:44 07/24/22 21:30 07/24/22 19:35 Temperature 98.3 F Pulse Rate 46 L 46 L 46 L Respiratory Rate 16 15 Blood Pressure 158/88 H 137/80 Pulse Oximetry 96 Oxygen Delivery 07/24/22 19:45 07/24/22 19:47 07/24/22 20:17 Temperature Pulse Rate 44 L 47 L 47 L Respiratory Rate 16 14 16 Blood Pressure 140/83 133/77 Pulse Oximetry Oxygen Delivery 07/24/22 20:18 07/24/22 20:30 07/24/22 20:45 Temperature Pulse Rate 47 L 45 L 51 L Respiratory Rate 16 16 14 Blood Pressure 126/74 Pulse Oximetry 97 Oxygen Delivery 07/24/22 22:12 07/24/22 22:15 07/24/22 22:30 Temperature Pulse Rate 46 L 45 L 47 L Respiratory Rate 13 11 L 11 L Blood Pressure Pulse Oximetry 94 93 93 Oxygen Delivery 07/24/22 22:45 07/24/22 23:00 07/25/22 00:00 Temperature 98.2 F Pulse Rate 47 L 48 L 87 Respiratory Rate 12 12 20 Blood Pressure 142/70 H 113/53 L Pulse Oximetry 100 98 99 Oxygen Delivery 07/25/22 00:00 07/25/22 00:00 07/25/22 02:00 Temperature 97.8 F Pulse Rate 55 L 93 Respiratory Rate 18 Blood Pressure 150/65 H Pulse Oximetry 99 99 Oxygen Delivery Room Air 07/25/22 03:42 07/25/22 04:00 07/25/22 04:00 Temperature 99.1 F Pulse Rate 101 H 108 H Respiratory Rate 20 Blood Pressure 154/78 H Pulse Oximetry 99 99 Oxygen Delivery Room Air 07/25/22 05:51 07/25/22 08:00 Temperature 97.7 F Pulse Rate 106 H 104 H Respiratory Rate 18 Blood Pressure 161/96 H Pulse Oximetry 97 Oxygen Delivery Intake/Output Intake/Output: Intake & Output 07/22/22 07/23/22 07/24/22 07/25/22 23:59 23:59 23:59 23:59 Intake Total 240 Output Total 1050 Balance -810 Meds/Results Medications: Active Medications Generic Name Dose Route Start Last Admin Trade Name Freq PRN Reason Stop Dose Admin Apixaban 5 mg 07/25/22 09:00 Apixaban 5 Mg Tablet PO Q12HR [facility] Atorvastatin Calcium 80 mg 07/25/22 09:00 Atorvastatin 40 Mg Ta
[2022-07-25] MEDS: METOPROLOL TARTRATE 12.5 MG TABLET PO ×2 (13:23→20:06)
[2022-07-25] MEDS: APIXABAN 5 MG TABLET PO ×2 (13:23→20:06)
[2022-07-25] MEDS: FLECAINIDE ACETATE 50 MG TABLET PO ×2 (13:24→20:06)
[2022-07-25] MEDS: ATORVASTATIN 40 MG TABLET 80 MG PO (13:24)
--- NOTE | 2022-07-25 16:31 | PC.NURSE ---
This patient, Dex Talbot, was transferred to [facility] on 07/25/22 at 1631. Personal belongings sent with patient. Report given to Aneudy ACKERMAN. Appropriate documentation sent with patient.
[2022-07-26] VITALS (15 sets, daily range): BP systolic 122–149; BP diastolic 85–91; PULSE 10–113; RESP 12–20; TEMP 36.7; O2SAT 92–98
[2022-07-26] MEDS: METOPROLOL TARTRATE 12.5 MG TABLET PO ×2 (08:02→10:02)
[2022-07-26] MEDS: FLECAINIDE ACETATE 50 MG TABLET PO ×2 (08:02→10:01)
[2022-07-26] MEDS: APIXABAN 5 MG TABLET PO ×2 (08:03→20:14)
[2022-07-26] MEDS: ATORVASTATIN 40 MG TABLET 80 MG PO (08:03)
--- NOTE | 2022-07-26 09:11 | PM.PNCARD ---
Progress Note: A&P Assessment and Plan (1) Paroxysmal atrial fibrillation: Code(s): I48.0 - Paroxysmal atrial fibrillation Status: Acute Assessment and Plan: [id number] 4. On Eliquis.He went back into atrial fib/flutter now. Since still in atrial fib, increase Flecainide 100 mg BID and increase Metoprolol Tartate 25 mg BID. Once he cardioverts, then can reduce Metoprolol 12.5 mg BID. He has 30 day event monitor on. If he cardioverts by this afternoon, may d/c home and f/u with me in 1-2 weeks. (2) Hyperlipidemia LDL goal <70: Code(s): E78.5 - Hyperlipidemia, unspecified Status: Acute Assessment and Plan: On Atorvastatin. (3) Essential hypertension: Code(s): I10 - Essential (primary) hypertension Status: Acute Assessment and Plan: Stable. (4) Syncope: Code(s): R55 - Syncope and collapse Status: Acute Assessment and Plan: Either due to orthostatic syncope or seizure? HR is not slow enough to cause syncope. (5) Bradycardia: Code(s): R00.1 - Bradycardia, unspecified Status: Acute Subjective Date/time seen: 07/26/22 09:11 Interval history: Denies dizziness or chest pain or sob. Exam Const: General: cooperative, healthy appearing and comfortable HENMT: Face and sinus: other (bruise on right side of face under eye) Resp: Auscultation: clear to auscultation bilaterally, no crackles, no rales, no rhonchi and no wheezes Cardio: Rate: tachycardic Rhythm: abnormal rhythm Heart sounds: no murmurs Peripheral pulses: dorsalis pedis present GI: GI Palp: No abdominal tenderness and Yes Soft to palpation Neuro: General: oriented to person, oriented to place and oriented to time Extrem: Right lower extremity: no edema Left lower extremity: no edema Objective Data Vital Signs Vital Signs: Vital Signs - 24 hr 07/25/22 13:23 07/25/22 13:24 07/25/22 12:00 Temperature Pulse Rate 110 H 110 H 122 H Respiratory Rate Blood Pressure Pulse Oximetry Oxygen Delivery 07/25/22 16:00 07/25/22 16:00 07/25/22 19:51 Temperature 98.1 F 97.7 F Pulse Rate 110 H 100 99 Respiratory Rate 18 16 Blood Pressure 141/90 H 131/93 H Pulse Oximetry 95 94 Oxygen Delivery 07/25/22 20:06 07/25/22 20:06 07/25/22 20:00 Temperature Pulse Rate 99 99 Respiratory Rate Blood Pressure Pulse Oximetry Oxygen Delivery Room Air 07/25/22 20:03 07/26/22 00:02 07/26/22 04:04 Temperature Pulse Rate 96 101 H 94 Respiratory Rate Blood Pressure Pulse Oximetry Oxygen Delivery 07/26/22 04:00 07/26/22 08:02 07/26/22 08:02 Temperature 98.1 F Pulse Rate 90 113 H 113 H Respiratory Rate 12 Blood Pressure 130/85 Pulse Oximetry 92 Oxygen Delivery 07/26/22 08:05 Temperature Pulse Rate Respiratory Rate Blood Pressure Pulse Oximetry Oxygen Delivery Room Air Intake/Output Intake/Output: Intake & Output 07/23/22 07/24/22 07/25/22 07/26/22 23:59 23:59 23:59 23:59 Intake Total 1320 400 Output Total 1950 Balance -630 400 Meds/Results Medications: Active Medications Generic Name Dose Route Start Last Admin Trade Name Freq PRN Reason Stop Dose Admin Apixaban 5 mg 07/25/22 09:00 07/26/22 08:03 Apixaban 5 Mg Tablet PO 5 mg Q12HR DEEDEE Administration Atorvastatin Calcium 80 mg 07/25/22 09:00 07/26/22 08:03 Atorvastatin 40 Mg Tablet PO 80 mg DAILY DEEDEE Administration Flecainide Acetate 100 mg 07/26/22 09:00 Flecainide Acetate 100 Mg Tablet PO Q12HR DEEDEE Metoprolol Tartrate 25 mg 07/26/22 09:00 Metoprolol Tartrate 25 Mg Tablet PO Q12HR DEEDEE Perflutren Lipid Microsphere 0 ml 07/25/22 06:40 Perflutren Lipid Microspheres 1.5 Ml Vial Diluted To 10 Ml Total Volume IV PUSH 07/27/22 06:40 ONCE PRN adequate visualization Protocol Radiology Results: ITS Impressions Head CT 07/24/22 18:54 I
--- NOTE | 2022-07-26 10:15 | PM.IMPN ---
Progress Note: A&P Assessment and Plan (1) Postural dizziness with near syncope: Code(s): R42 - Dizziness and giddiness; R55 - Syncope and collapse Status: Acute Assessment and Plan: Appreciate Cardiology input. Med medications have been adjusted. Will continue to monitor. once patient cardioverted he can be discharged home. Patient is still in atrial fibrillation. (2) Sinus bradycardia: Code(s): R00.1 - Bradycardia, unspecified Status: Acute (3) Paroxysmal atrial fibrillation: Code(s): I48.0 - Paroxysmal atrial fibrillation Status: Acute (4) Gastro-esophageal reflux disease without esophagitis: Onset Date: 04/01/19 Code(s): K21.9 - Gastro-esophageal reflux disease without esophagitis Status: Acute (5) Prostate cancer: Code(s): C61 - Malignant neoplasm of prostate Status: Acute (6) Seizure disorder: Code(s): G40.909 - Epilepsy, unspecified, not intractable, without status epilepticus Status: Acute Subjective Date/time seen: 07/26/22 10:15 No new complaints Exam Narrative: General: alert and oriented Psych: appropriate mood nad affect Eyes: PERRLA Neck: Trachea midline, no new lesions Skin: no changes Lungs: CTA Cardiac: Normal S1,S2, no MGR ABD: soft, nd, nt, nbs Ext: no new lesions, no cce Vasc: Pulses intact Objective Data Vital Signs Vital Signs: Vital Signs - 24 hr 07/25/22 13:23 07/25/22 13:24 07/25/22 12:00 Temperature Pulse Rate 110 H 110 H 122 H Respiratory Rate Blood Pressure Pulse Oximetry Oxygen Delivery 07/25/22 16:00 07/25/22 16:00 07/25/22 19:51 Temperature 98.1 F 97.7 F Pulse Rate 110 H 100 99 Respiratory Rate 18 16 Blood Pressure 141/90 H 131/93 H Pulse Oximetry 95 94 Oxygen Delivery 07/25/22 20:06 07/25/22 20:06 07/25/22 20:00 Temperature Pulse Rate 99 99 Respiratory Rate Blood Pressure Pulse Oximetry Oxygen Delivery Room Air 07/25/22 20:03 07/26/22 00:02 07/26/22 04:04 Temperature Pulse Rate 96 101 H 94 Respiratory Rate Blood Pressure Pulse Oximetry Oxygen Delivery 07/26/22 04:00 07/26/22 08:02 07/26/22 08:02 Temperature 98.1 F Pulse Rate 90 113 H 113 H Respiratory Rate 12 Blood Pressure 130/85 Pulse Oximetry 92 Oxygen Delivery 07/26/22 08:05 07/26/22 08:00 07/26/22 10:01 Temperature Pulse Rate 102 H 90 Respiratory Rate Blood Pressure Pulse Oximetry Oxygen Delivery Room Air 07/26/22 10:02 Temperature Pulse Rate 90 Respiratory Rate Blood Pressure Pulse Oximetry Oxygen Delivery Intake/Output Intake/Output: Intake & Output 07/23/22 07/24/22 07/25/22 07/26/22 23:59 23:59 23:59 23:59 Intake Total 1320 400 Output Total 1950 Balance -630 400 Meds/Results Medications: Active Medications Generic Name Dose Route Start Last Admin Trade Name Freq PRN Reason Stop Dose Admin Apixaban 5 mg 07/25/22 09:00 07/26/22 08:03 Apixaban 5 Mg Tablet PO 5 mg Q12HR DEEDEE Administration Atorvastatin Calcium 80 mg 07/25/22 09:00 07/26/22 08:03 Atorvastatin 40 Mg Tablet PO 80 mg DAILY DEEDEE Administration Flecainide Acetate 100 mg 07/26/22 21:00 Flecainide Acetate 100 Mg Tablet PO Q12HR DEEDEE Metoprolol Tartrate 25 mg 07/26/22 21:00 Metoprolol Tartrate 25 Mg Tablet PO Q12HR DEEDEE Perflutren Lipid Microsphere 0 ml 07/25/22 06:40 Perflutren Lipid Microspheres 1.5 Ml Vial Diluted To 10 Ml Total Volume IV PUSH 07/27/22 06:40 ONCE PRN adequate visualization Protocol Radiology Results: ITS Impressions Head/Cervical Spine/Facial Bones CT 07/24/22 18:58 IMPRESSION: 1. No fracture. 2. Moderate cervical spondylosis. Chest X-Ray 07/24/22 19:22 IMPRESSION: 1. Mild atelectasis in the lower lung zones. 2. Cardiomegaly. Chest CTA 07/24/22 20:56 IMPRESSION: 1. No pulmonary embol
[2022-07-26] MEDS: FLECAINIDE ACETATE 100 MG TABLET PO (20:13)
[2022-07-26] MEDS: METOPROLOL TARTRATE 25 MG TABLET PO (20:14)
[2022-07-27] VITALS: PULSE 86
[2022-07-27 04:00] VITALS: PULSE 100
[2022-07-27 05:42] VITALS: BP 132/101; PULSE 100; RESP 20; TEMP 36.5; O2SAT 96
--- NOTE | 2022-07-27 07:44 | PM.PNCARD ---
Progress Note: A&P Assessment and Plan (1) Paroxysmal atrial fibrillation: Code(s): I48.0 - Paroxysmal atrial fibrillation Status: Acute Assessment and Plan: [id number] 4. On Eliquis.He went back into atrial fib/flutter now. Since still in atrial fib, increase Flecainide 100 mg BID and increase Metoprolol Tartate 25 mg BID. Once he cardioverts, then can reduce Metoprolol 12.5 mg daily. He has 30 day event monitor on. Still in atrial fib, but may d/c home and f/u with me in 1 week. If he remains in atrial fib at that time, will schedule for outpatient DC cardioversion. (2) Hyperlipidemia LDL goal <70: Code(s): E78.5 - Hyperlipidemia, unspecified Status: Acute Assessment and Plan: On Atorvastatin. (3) Essential hypertension: Code(s): I10 - Essential (primary) hypertension Status: Acute Assessment and Plan: Stable. (4) Syncope: Code(s): R55 - Syncope and collapse Status: Acute Assessment and Plan: Either due to orthostatic syncope or seizure? HR is not slow enough to cause syncope. (5) Bradycardia: Code(s): R00.1 - Bradycardia, unspecified Status: Acute Subjective Date/time seen: 07/27/22 07:44 Interval history: He is ready to go home. Denies chest pain or sob or dizziness. Exam Const: General: cooperative, healthy appearing and comfortable HENMT: Face and sinus: other (bruise on right side of face under eye) Resp: Auscultation: clear to auscultation bilaterally, no crackles, no rales, no rhonchi and no wheezes Cardio: Rate: tachycardic Rhythm: abnormal rhythm Heart sounds: no murmurs Peripheral pulses: dorsalis pedis present GI: GI Palp: No abdominal tenderness and Yes Soft to palpation Neuro: General: oriented to person, oriented to place and oriented to time Extrem: Right lower extremity: no edema Left lower extremity: no edema Objective Data Vital Signs Vital Signs: Vital Signs - 24 hr 07/26/22 08:02 07/26/22 08:02 07/26/22 08:05 Temperature Pulse Rate 113 H 113 H Respiratory Rate Blood Pressure Pulse Oximetry Oxygen Delivery Room Air 07/26/22 08:00 07/26/22 10:01 07/26/22 10:02 Temperature Pulse Rate 102 H 90 90 Respiratory Rate Blood Pressure Pulse Oximetry Oxygen Delivery 07/26/22 08:00 07/26/22 12:00 07/26/22 14:00 Temperature 98.0 F Pulse Rate 106 H 98 Respiratory Rate 16 Blood Pressure 122/85 Pulse Oximetry 98 Oxygen Delivery Room Air 07/26/22 16:00 07/26/22 19:55 07/26/22 20:13 Temperature Pulse Rate 101 H 101 H 10 L Respiratory Rate 16 Blood Pressure Pulse Oximetry 98 Oxygen Delivery Room Air 07/26/22 20:14 07/26/22 20:25 07/26/22 20:00 Temperature 98.1 F Pulse Rate 101 H 98 97 Respiratory Rate 20 Blood Pressure 149/91 H Pulse Oximetry 98 Oxygen Delivery 07/27/22 00:00 07/27/22 05:42 07/27/22 04:00 Temperature 97.7 F Pulse Rate 86 100 100 Respiratory Rate 20 Blood Pressure 132/101 H Pulse Oximetry 96 Oxygen Delivery Intake/Output Intake/Output: Intake & Output 07/24/22 07/25/22 07/26/22 07/27/22 23:59 23:59 23:59 23:59 Intake Total 1320 2630 300 Output Total 1950 Balance -630 2630 300 Meds/Results Medications: Active Medications Generic Name Dose Route Start Last Admin Trade Name Freq PRN Reason Stop Dose Admin Apixaban 5 mg 07/25/22 09:00 07/26/22 20:14 Apixaban 5 Mg Tablet PO 5 mg Q12HR DEEDEE Administration Atorvastatin Calcium 80 mg 07/25/22 09:00 07/26/22 08:03 Atorvastatin 40 Mg Tablet PO 80 mg DAILY DEEDEE Administration Flecainide Acetate 100 mg 07/26/22 21:00 07/26/22 20:13 Flecainide Acetate 100 Mg Tablet PO 100 mg Q12HR DEEDEE Administration Metoprolol Tartrate 25 mg 07/26/22 21:00 07/26/22 20:14 Metoprolol Tartrate 25 Mg Tablet PO 25 mg Q12HR DEEDEE Administration Radiology Results: ITS Impres
[2022-07-27 08:00] VITALS: PULSE 93
[2022-07-27 08:05] VITALS: PULSE 103
[2022-07-27] MEDS: FLECAINIDE ACETATE 100 MG TABLET PO (08:05)
[2022-07-27] MEDS: ATORVASTATIN 40 MG TABLET 80 MG PO (08:05)
[2022-07-27 08:08] VITALS: PULSE 103
[2022-07-27] MEDS: APIXABAN 5 MG TABLET PO (08:08)
[2022-07-27] MEDS: METOPROLOL TARTRATE 25 MG TABLET PO (08:08)
--- NOTE | 2022-07-27 10:58 | P.DS_ITS ---
DS: Admitting Diagnosis Discharge Date 07/27/22 Admitting Diagnosis afib DS: Discharge Diagnosis Discharge Diagnosis (1) Postural dizziness with near syncope: Code(s): R42 - Dizziness and giddiness; R55 - Syncope and collapse Status: Acute Assessment and Plan: Appreciate Cardiology input. Med medications have been adjusted. Will continue to monitor. once patient cardioverted he can be discharged home. Patient is still in atrial fibrillation. (2) Sinus bradycardia: Code(s): R00.1 - Bradycardia, unspecified Status: Acute (3) Paroxysmal atrial fibrillation: Code(s): I48.0 - Paroxysmal atrial fibrillation Status: Acute (4) Gastro-esophageal reflux disease without esophagitis: Onset Date: 04/01/19 Code(s): K21.9 - Gastro-esophageal reflux disease without esophagitis Status: Acute (5) Prostate cancer: Code(s): C61 - Malignant neoplasm of prostate Status: Acute (6) Seizure disorder: Code(s): G40.909 - Epilepsy, unspecified, not intractable, without status epilepticus Status: Acute DS: Summary Hospital Course Hospital Course: admitted for dizziness and vertigo, found to have low hr on afib medications. N ow resolved and meds were adjusted. He can be dc and fu with cardiology. TO note patient did cardiovert prior to dc. Time Spent with Patient Time attestation: Total time spent providing and/or coordinating discharge services: Exam Narrative: General: alert and oriented Psych: appropriate mood nad affect Eyes: PERRLA Neck: Trachea midline, no new lesions Skin: no changes Lungs: CTA Cardiac: Normal S1,S2, no MGR ABD: soft, nd, nt, nbs Ext: no new lesions, no cce Vasc: Pulses intact Discharge Plan Discharge Attending physician on discharge: Brant Watkins Consulting providers: Venessa Romero ; Chandu Napier Discharging Clinician: Brant Watkins Patient Disposition: Home, Self-Care Activity: no preference Diet: as tolerated Patient Instructions: Antibiotic Form, Apixaban (By mouth), Syncope (DC), Bradycardia (DC), Safe Use of Anticoagulants (DC) Stand Alone Forms: General Discharge Information Follow-up/Referrals: Chandu Napier DO [Physician] - Ridge Smith DO [Primary Care Provider] - Discharge Medications: New metoprolol tartrate 25 mg Tablet 25 mg PO Q12HR 30 Days Qty: 60 0RF Continued Centrum Silver 400-250 mcg tablet,chewable 1 tablet PO DAILY famotidine 20 mg tablet 20 mg PO DAILY Qty: 90 2RF atorvastatin [Lipitor] 80 mg tablet 80 mg PO DAILY Rx Instructions: TAKE 1 TABLET BY MOUTH DAILY Eliquis 5 mg tablet 5 mg PO BID Qty: 180 2RF Rx Instructions: TAKE 1 TABLET BY MOUTH TWICE DAILY levetiracetam 750 mg tablet 750 mg PO BID Qty: 180 1RF Rx Instructions: TAKE 1 TABLET BY MOUTH EVERY 12 HOURS flecainide 100 mg tablet 100 mg PO BID Qty: 180 2RF Discontinued metoprolol tartrate 25 mg tablet 12.5 mg PO BID Qty: 30 5RF Date of admission: 07/26/22 13:11 Primary Care Provider: Ridge Smith Admitting Provider: Ray Qiu V. Attending physician on admission: Ray Qiu V. Condition: Stable
== END 2022-07-27 11:40 | disposition home or self-care (01) | DRG 309 ==
LOC: ANHED 19:58 → ANHIMU 23:21 → ANH2MED 07-25 16:36
PROVIDERS: Physician Assistant; Admitting Provider Internal Medicine; Emergency Provider Emergency Medicine; PCP Internal Medicine; Visit Provider Chiropractor
DX: I48.0 Paroxysmal atrial fibrillation (principal); D68.59 Other primary thrombophilia; I69.351 Hemiplegia and hemiparesis following cerebral infarction affecting right dominant side; C61 Malignant neoplasm of prostate; I69.320 Aphasia following cerebral infarction; I95.1 Orthostatic hypotension; Z20.822 Contact with and (suspected) exposure to COVID-19; R00.1 Bradycardia, unspecified; E78.5 Hyperlipidemia, unspecified; G40.909 Epilepsy, unspecified, not intractable, without status epilepticus; I10 Essential (primary) hypertension; K21.9 Gastro-esophageal reflux disease without esophagitis; H33.059 Total retinal detachment, unspecified eye; S01.01XA Laceration without foreign body of scalp, initial encounter; W19.XXXA Unspecified fall, initial encounter; Z86.718 Personal history of other venous thrombosis and embolism; Z87.891 Personal history of nicotine dependence; Z79.01 Long term (current) use of anticoagulants
CPT/HCPCS: 36415; 70450; 70486; 71046; 71275; 72125; 80053; 85025; 85380; 85610; 85730; 93005; 93306; 97161; 97165; 99285; A9270; C9803; G0378; Q9967; U0003; U0005

== ENCOUNTER 2022-10-03 13:15 | Observation (INO) | payer MEDICARE, SELFPAY ==
[2022-10-02 15:50] VITALS: BMI 27.9
[2022-10-03] VITALS (13 sets, daily range): BP systolic 119–142; BP diastolic 73–96; PULSE 62–91; RESP 14–18; TEMP 36–36.6; O2SAT 94–100; BMI 27.4; BMI 27.3; BMI 32.3
--- NOTE | ~2022-10-03 | XR_ITS ---
EXAMINATION: XR chest 1V portable INDICATION: Pacemaker insertion TECHNIQUE: Portable AP chest at 1332 hours COMPARISON: 07/24/2022 FINDINGS: A dual-lead pacemaker has been inserted in the left chest wall with its leads ending in exp ected positions. No pleural effusion or pneumothorax. There is mild atelectasis of the lung bases. Ca rdiomegaly is noted. IMPRESSION: 1. Pacemaker insertion, no pneumothorax. 2. Cardiomegaly. Reviewed, dictated and finalized at location B. [facility]
[2022-10-03 10:23] LABS: Basophils Percent Auto 0.5 % (0.2-1.2); Eosinophils Absolute Auto 0.1 K/mm3 (0-0.3); Eosinophils Percent Auto 1.5 % (0-4.4); Hematocrit 45.9 % (42.0-52.0); Lymphocytes Absolute Auto 2.15 K/mm3 (0.9-3.2); Lymphocytes Percent Auto 32.7 % (18.3-44.2); Mean Corpuscular HGB Conc 32.7 g/dl (32-36); Mean Corpuscular Hemoglobin 31.7 pg (26-34); Mean Platelet Volume 10.4 fl (7.4-10.4); Monocytes Absolute Auto 0.6 K/mm3 (0.1-0.6); Monocytes Percent Auto 9.7 % (2.6-8.5); Neutrophils Absolute Auto 3.7 K/mm3 (1.3-6.7); Neutrophils Percent Auto 55.6 % (45.5-73.1); Platelet Count Result 197 k/mm3 (150-375); Red Blood Count 4.73 M/mm3 (4.6-6.20); Red Cell Distribution Width 12.7 % (11.5-14.5); White Blood Count 6.6 K/mm3 (4.5-10.0)
[2022-10-03 10:36] LABS: INR 1.1; Prothrombin Time 13.4 Seconds (11.1-14.7)
[2022-10-03 10:45] LABS: Anion Gap 7 mmol/L (8-16); Blood Urea Nitrogen 8 mg/dL (9-20); Calcium 9.1 mg/dL (8.4-10.2); Carbon Dioxide 30 mmol/L (22-30); Chloride 104 mmol/L (98-107); Estimated CRCL calculation 100 ml/min; Estimated Glomerular Filt Rate > 60; Glucose 96 mg/dL (65-110); Potassium 3.9 mmol/L (3.4-5.0); Sodium 141 mmol/L (137-145)
--- NOTE | 2022-10-03 10:49 | WPDMODSED ---
Moderate Sedation Note-Pt Data Patient Data Diagnosis: Sick sinus syndrome with symptomatic bradycardia and syncope Paroxysmal atrial fibrillation Previous CVA Present Complaint: No complaints this morning Procedure to be performed/Plan: Implantation of permanent pacemaker Allergies Allergy/AdvReac Type Severity Reaction Status Date / Time No Known Allergies Allergy Mild Verified 10/03/22 10:11 Home Medications Medication Instructions Recorded Confirmed Type multivit with min-folic 1 tablet PO DAILY 09/15/19 10/02/22 History acid-lutein 400 mcg-250 mcg chewable tablet (Centrum Silver) apixaban 5 mg tablet (Eliquis) 5 mg PO BID #180 tabs 02/11/22 10/02/22 Rx atorvastatin 80 mg tablet (Lipitor) 80 mg PO DAILY 07/25/22 10/02/22 History metoprolol tartrate 25 mg tablet 12.5 mg PO Q12HR 30 days #30 tabs 08/04/22 10/02/22 Rx Sedation/Anesthesia: No previous sedation/anesthesia problems (including family history). [facility] Past Medical History Medical History Colon polyp Current moderate episode of major depressive disorder without prior episode Essential hypertension Expressive aphasia H/O completed stroke Hx of retinal detachment Hyperlipidemia LDL goal <70 Paroxysmal atrial fibrillation Protein S deficiency Seizure disorder Family History Family History (Updated 07/25/22 @ 00:41 by SINCERE Zhou) Mother Heart disease Diabetes mellitus Son History of blood clots Social History Social History Smoking packs per day: 2 Smoking cigarettes per day: 40.0 Years smoked: 30 Smoking pack-years: 60.00 Smoking status: Former smoker Tobacco type: cigarettes Second hand tobacco smoke exposure: No Smoking end date: 10/05/88 Alcohol intake: current Drinks per week: 21 Alcohol use details: 3-4 beers per day Substance use: never Substance use type: does not use Lack of Transportation: No Lack of Food: Never True Current Housing: I Have Housing Concerned About Future Housing: No Difficulty Paying Gas/Electric Bills: No Difficulty Paying for Meds: No Currently Unemployed: No Education: High School Diploma/GED Difficulty w/ Childcare or Family Care: No Living arrangements: with family Spiritual care concerns: No Mod Sed Physical Exam Physical Exam Pre Procedural Exam: Normal: Appearance, Neck, Throat, Airway, Lungs, Heart Size, Heart Rate, Heart Rhythm and Extremities and Variation: Neuro Exam (Right hemiplegia) Hours since solid foods: 12 Hours since liquid intake: 12 Mallampati Classification: class II Internal Medicine - PN: Obj Da Vital Signs Vital Signs: Vital Signs - 24 hr 10/03/22 10:15 Pulse Rate 62 Respiratory Rate 18 Blood Pressure 133/88 Pulse Oximetry 100 Oxygen Delivery Room Air Labs 10/03/22 10:10 10/03/22 10:10 Labs: Laboratory Results - last 24 hr 10/03/22 10/03/22 10/03/22 10:10 10:10 10:10 WBC 6.6 RBC 4.73 Hgb 15.0 Hct 45.9 MCV 97.0 MCH 31.7 MCHC 32.7 RDW 12.7 Plt Count 197 MPV 10.4 Immature Gran % (Auto) 0.0 Neut % (Auto) 55.6 Lymph % (Auto) 32.7 [place] % (Auto) 9.7 H Eos % (Auto) 1.5 Baso % (Auto) 0.5 Lymph # (Auto) 2.15 [place] # (Auto) 0.6 Eos # (Auto) 0.1 Baso # (Auto) 0.0 Abs Immat Gran (auto) 0.00 Absolute Neuts (auto) 3.7 Absolute Nucleated RBC 0.0 Nucleated RBC % 0.0 PT 13.4 INR 1.1 Sodium 141 Potassium 3.9 Chloride 104 Carbon Dioxide 30 Anion Gap 7 L BUN 8 L Creatinine 0.70 Estim Creat Clear Calc 100 Estimated GFR > 60 Glucose 96 Calcium 9.1 ASA Classification/Sedation ASA Classification/Sedation ASA Class: III Emergent: No Risks: Risks, benefits and alternatives explained and patient/family accepted plan for sedation. Radha
--- NOTE | 2022-10-03 12:00 | ECG_ITS ---
Measurements Intervals [place] Rate: 69 P: 179 NE: 161 QRS: 32 QRSD: 81 T: 31 QT: 426 QTc: 458 Interpretive Statements ELECTRONIC ATRIAL PACEMAKER ABNORMAL RHYTHM ECG COMPARED TO ECG 07/25/2022 09:45:34 ELECTRONIC ATRIALLY PACED RHYTHM IS NOW NOTED Electronically Signed On 10-03-2022 15:04:06 SALES ADMINISTRATOR by Brant Escalera M.D.
--- NOTE | 2022-10-03 12:39 | WPDCARDPROC ---
Cardiac Cath Procedure Note Date of procedure:: 10/03/22 Performing physician:: Brant Escalera MD Indication:: syncope with sick sinus syndrome Brief clinical history:: this is a 66-year-old patient with a history of paroxysmal atrial fibrillation and previous presumed cardioembolic CVA. He also has been having syncopal episodes and on outpatient event monitor has been found to have significant asystolic pauses. For this reason he is also given the diagnosis of sick sinus syndrome and pacemaker implant was recommended in this situation. Procedure Procedure performed:: Implantation of permanent dual-chamber pacemaker Sedation/Medication given:: fentanyl 50 mg Versed mg case start time 11:46 a.m. case end time 1234 p.m. sedation provided by Tina Lerma RN. trained observer Access site:: left subclavian vein Estimated blood loss:: 20 cc Procedure note:: patient was brought to the cardiac catheterization lab postabsorptive state the left anterior chest wall was prepped and draped in the normal sterile fashion. Anesthesia was given infiltrated inferior to the clavicle with 1% lidocaine. A decision was then made for about 1 in below the clavicle from the midclavicular line to the deltopectoral groove. Electrocautery was used to provide cutaneous hemostasis and sharp and blunt dissection was used to dissect the subcutaneous tissue to the level of the prepectoral fascia. Following this a blunt dissection was used to create a pacemaker pocket along the fascial plane. The pocket was then packed with antibiotic soaked 4 x 4. Following this attention was turned to venous access. Using the 2 6 Azeri safe sheaths 2 separate punctures were made of the subclavian vein in the J wires were advanced under fluoroscopic visualization to the level of the right atrium. Using the SafeSheath was the pacemaker leads described below were advanced into the venous circulation to the level of the right atrium. Attention was then turned to lead positioning. The straight stylet was removed from ventricular lead and I performed J tipped using a 3 cc syringe. This was used to steer the lead through the RV out to the PA position. The lead was then withdrawn and placed into the right ventricle. A slightly higher than Apical position was chosen. The fixation screw was deployed. This provided very good pacing and sensing performance. A 10 volts stimulation showed no sign of Extracardiac stimulation. attention was then turned to the atrial lead. The straight stylet was removed and a preformed atrial J was placed into the lead tip was positioned into the right atrial appendage and the fixation screw was deployed. Following this the lead was tested and again appropriate pacing and sensing performance was demonstrated. Once again a 10 volts stimulation showed no sign of extracardiac stimulation. The pocket was then irrigated with Ancef infused saline and the leads were secured to the base of pocket using the suture sleeves and 2-0 silk ties. Following this the generator described below was connected to the leads using the torque wrench. The entire assembly was placed into the newly created pocket was then closed in layers using 3-0 Vicryl in interrupted fashion for the subcutaneous tissue and 4-0 Vicryl in a running subcuticular fashion for the skin. The wound was dressed with a Aquacel dressing. They procedure was well tolerated and uncomplicated. Postop antibiotics analgesics chest x-ray and ECG were ordered. Findings:: The patient received a Biotronik dual-chamber pacemaker model Edora 8 [id number]. serial number [id number]. Device is programmed in the DDD/CLS mode lower rate limit 50/130. The atrial lead is a Biotronik dual-chamber screw-in lead model Solia S [id number]. serial number [id number]. the P-waves are sensed at 2.2 mV threshold 0.7 volts at 0.4 milliseconds impedance 624 Ohms. The ventricular lead is a Biotronik dual-chamb
[2022-10-03] MEDS: SODIUM CHLORIDE 0.9% IV 1,000 ML 50 ML IV CONT (15:07)
--- NOTE | 2022-10-03 15:23 | PC.NURSE ---
admission completed by HISTOLOGIC AIDE RN. report given to IMU RN @[phone]. pt wheeled to room 210-1 via hospital bed. pt and spouse oriented to room, call light left within reach.
[2022-10-03] MEDS: HYDROcodone/acetaminophen (*CRX) 5-325 MG TABLET 1 TAB PO (20:16)
[2022-10-03] MEDS: METOPROLOL TARTRATE 12.5 MG TABLET PO (20:16)
[2022-10-04] VITALS (7 sets, daily range): BP systolic 133–150; BP diastolic 79–90; PULSE 57–71; RESP 14–18; TEMP 35.9–36.4; O2SAT 95–97
--- NOTE | 2022-10-04 09:00 | PM.DS ---
DS: Admitting Diagnosis Discharge Date 10/04/2022 Admitting Diagnosis Sick sinus syndrome DS: Summary Hospital Course Reason for hospitalization: Implantation of permanent pacemaker Hospital Course: This is a 66-year-old gentleman with a history of paroxysmal atrial fibrillation and a history of sick sinus syndrome with symptomatic asystolic pauses of up to 7 seconds noted on outpatient monitoring. He was referred for pacemaker implantation about 6 weeks ago. The patient was considering whether to proceed and recently it decided that he would wished to proceed with implant and this was scheduled for the day of admission. He underwent implantation of a permanent dual-chamber Biotronik pacemaker uneventfully via the left subclavian approach. The patient had no postop complications or arrhythmias. His chest x-ray with poor following implant was unremarkable with no pneumothorax. The device is functioning normally this morning and he appears to be a good candidate for discharge. He was instructed to leave the Aquacel dressing undisturbed to not to lift the left arm above his head for the next month. He will be seen in our office next week for dressing removal and wound inspection and then chronic follow-up will be with Dr. Napier. He was instructed not to resume his apixaban until he is seen in the office next week. Status at Discharge Functional status at discharge: independent ambulation Time Spent with Patient Time attestation: Total time spent providing and/or coordinating discharge services: Time spent: Less than 30 minutes Exam Const: General: comfortable and no acute distress HENMT: Mouth: Yes moist mucous membranes Eyes: Sclera: sclerae normal Pupils: Equal, round and reactive pupils present Neck: Neck: supple and no JVD Resp: Effort & Inspection: normal respiratory effort Auscultation: clear to auscultation bilaterally Other: Pacemaker dressing in left subclavian fossa looks unremarkable clean and dry Cardio: Rate: regular rate Rhythm: regular rhythm Other: Atrially paced rhythm GI: GI Palp: Yes Soft to palpation Auscultation: normal bowel sounds Skin: General skin exam: normal color Neuro: Other: Alert and oriented x3 Extrem: Other: Normal pulses, no edema DS: Data Data Completed and Pending Labs on day of discharge: Labs from last 24 hours 10/03/22 10/03/22 10/03/22 10:10 10:10 10:10 WBC 6.6 RBC 4.73 Hgb 15.0 Hct 45.9 MCV 97.0 MCH 31.7 MCHC 32.7 RDW 12.7 Plt Count 197 MPV 10.4 Immature Gran % (Auto) 0.0 Neut % (Auto) 55.6 Lymph % (Auto) 32.7 [place] % (Auto) 9.7 H Eos % (Auto) 1.5 Baso % (Auto) 0.5 Lymph # (Auto) 2.15 [place] # (Auto) 0.6 Eos # (Auto) 0.1 Baso # (Auto) 0.0 Abs Immat Gran (auto) 0.00 Absolute Neuts (auto) 3.7 Absolute Nucleated RBC 0.0 Nucleated RBC % 0.0 PT 13.4 INR 1.1 Sodium 141 Potassium 3.9 Chloride 104 Carbon Dioxide 30 Anion Gap 7 L BUN 8 L Creatinine 0.70 Estim Creat Clear Calc 100 Estimated GFR > 60 Glucose 96 Calcium 9.1 Discharge Plan Discharge Attending physician on discharge: Brant Escalera Discharging Clinician: Brant Escalera Patient Disposition: Home, Self-Care Activity: other - see discharge instructions Diet: heart healthy Patient Instructions: Pacemaker (DC) Stand Alone Forms: General Discharge Instructions Follow-up/Referrals: Brant Escalera MD [Physician] - Discharge Medications: Continued Centrum Silver 400-250 mcg tablet,chewable 1 tablet PO DAILY metoprolol tartrate 25 mg tablet 12.5 mg PO Q12HR 30 Days Qty: 30 0RF atorvastatin [Lipitor] 80 mg tablet 80 mg PO DAILY Rx Instructions: TAKE 1 TABLET BY MOUTH DAILY Held Eliquis 5 mg tablet 5 mg PO BID Qty: 180 2RF Hold Instructions: Resume on 10/10/22. Rx Instructions: TAKE 1 T
[2022-10-04] MEDS: METOPROLOL TARTRATE 12.5 MG TABLET PO (09:56)
[2022-10-04] MEDS: ATORVASTATIN 40 MG TABLET 80 MG PO (09:56)
[2022-10-04] MEDS: MULTIVITAMINS /C LUTEIN (CENTRUM SILVER) TABLET *BKC 1 TAB PO (09:57)
== END 2022-10-04 10:35 | disposition home or self-care (01) ==
LOC: ANHCATHLAB 14:02 → ANHIMU 10-04 09:05
PROVIDERS: Admitting Provider Specialist; PCP Internal Medicine; Visit Provider Specialist
PROC: 0JH606Z Insertion of Pacemaker, Dual Chamber into Chest Subcutaneous Tissue and Fascia, Open Approach (ICD-10-PCS; CPT 33208; principal; 2022-10-03 11:30)
DX: R55 Syncope and collapse (principal); I49.5 Sick sinus syndrome; I48.0 Paroxysmal atrial fibrillation; R00.0 Tachycardia, unspecified; I51.7 Cardiomegaly; I10 Essential (primary) hypertension; F32.9 Major depressive disorder, single episode, unspecified; E78.5 Hyperlipidemia, unspecified; D68.59 Other primary thrombophilia; F10.90 Alcohol use, unspecified, uncomplicated; Z86.73 Personal history of transient ischemic attack (TIA), and cerebral infarction without residual deficits; Z87.891 Personal history of nicotine dependence; Z79.01 Long term (current) use of anticoagulants; Z79.899 Other long term (current) drug therapy
CPT/HCPCS: 33208; 36415; 71045; 80048; 85025; 85610; 93005; A9270; C1779; C1785; G0378; G0379; J0690; J2250; J3010; J7030; J7040

== ENCOUNTER 2022-10-29 08:07 | Outpatient (CLI) | payer MEDICARE, SELFPAY ==
--- NOTE | 2022-11-18 17:40 | WPDHOMESLEEP ---
Sleep Study - Home Unattended Date of Study: 10/29/22 Ordering Provider: Chandu Napier DO Interpreting Provider: Dior Fuentes DO Home Sleep Study Type: Watch PAT Height: 1.85 m Weight: 90.718 kg Body Mass Index: 26.4 Neck Circumference (inches): 17 [place]: 0 Reason for Sleep Study paroxysmal atrial fibrillation, hx of CVA Sleep History The patient is a 67-year-old male with paroxysmal atrial fibrillation, hyperlipidemia, hypertension, history of stroke, history of left lower extremity DVT and protein S deficiency that had a sleep study ordered by his crossing guard for evaluation of sleep apnea. The patient is currently retired. He denies awakening from sleep short of breath. He denies awakening at night with heartburn, belching or cough. He rarely snores and is rarely loud enough that others complain. He denies waking up gasping for air throughout the night. He frequently has breathing problems at night observed by himself or others. He denies sweating excessively at night. He rarely has heart palpitations or irregular heartbeats during the night. He denies falling asleep during the day and while driving. He denies sleep paralysis and cataplexy. he rarely experiences vivid dreamlike scenes upon awakening or falling asleep. He denies feeling afraid of going to sleep. He denies having nightmares. He rarely remembers his dreams. He rarely has thoughts racing through his mind. He rarely feels sad or depressed. He occasionally has anxiety. He occasionally has muscular tension. He rarely notices parts of his body jerk. He denies kicking during the night. He denies having crawling and aching feelings in his legs as well as leg pain during the night. He denies grinding his teeth during sleep and denies awakening with morning jaw pain. He ate is occasionally bothered by pain during the day but never awakened by pain during the night. He rarely wakes up feeling stiff in the morning. He denies waking up with sore or achy muscles. He denies waking up with pain in the neck, spine or other joints. He goes to bed at 10:30 p.m. on weekdays and at 11:00 p.m. on the weekends. It takes him 10-15 minutes to fall asleep. He wakes up once throughout the night to urinate. He is able to fall back asleep within 10 minutes. He wakes up at 7:30 a.m. on both weekdays and weekends. He typically gets 9 hours of sleep per night. He will stay in bed for 5-10 minutes after waking up in the morning. He currently lives with his . He does not consume any caffeinated beverages within 2 hours of bedtime. He does not engage in physical exercise before bedtime. He will watch television before falling asleep. He denies taking naps in the afternoon or the evening. He drinks 3 cups of caffeinated beverage per day. He quit smoking over 30 years ago. He consumes 6 beers per day. He denies recreational drug use. [facility] Past Medical History Medical History Colon polyp Current moderate episode of major depressive disorder without prior episode Essential hypertension Expressive aphasia H/O completed stroke Hx of retinal detachment Hyperlipidemia LDL goal <70 Paroxysmal atrial fibrillation Protein S deficiency Seizure disorder Family History Family History Mother Diabetes mellitus Heart disease Son History of blood clots Social History Social History Smoking packs per day: 2 Smoking cigarettes per day: 40.0 Years smoked: 30 Smoking pack-years: 60.00 Smoking status: Never smoker Tobacco type: cigarettes Second hand tobacco smoke exposure: No Smoking end date: 10/05/88 Alcohol intake: never Alcohol use details: 3-4 beers per day Substance use: never Substance use type: does not use Lack of Transportation: No Lack of Food: Never True Curren
[2022-11-18 17:47] VITALS: BMI 26.4
--- NOTE | 2023-01-29 10:48 | SLEEP ---
Addendum entered by Jeanna Hernandez 05/15/23 10:32: pt no longer has AFIB, pt ess remains 0 Original Note: pt has ref to sleep medicine from dr montaño.
== END 2022-10-30 11:30 | disposition home or self-care (01) ==
LOC: ANHCSM 08:09
PROVIDERS: PCP Internal Medicine; Visit Provider Internal Medicine Cardiovascular Disease
DX: G47.33 Obstructive sleep apnea (adult) (pediatric) (principal); G47.10 Hypersomnia, unspecified; Z78.9 Other specified health status
CPT/HCPCS: 95800

== ENCOUNTER 2024-05-13 09:44 | Emergency (ER) | payer MEDICARE, SELFPAY ==
[2024-05-13 09:53] VITALS: BP 148/106; PULSE 112; RESP 20; TEMP 37.1; O2SAT 100
--- NOTE | 2024-05-13 10:20 | ED.UPPEXIN ---
HPI - Extremity Injury (Upper) General Chief Complaint: Extremity Injury, Upper Stated Complaint: R FOREARM INJURY Time Seen by Provider: 05/13/24 10:07 Source: patient and RN notes reviewed Mode of arrival: ambulatory Limitations: no limitations History of Present Illness HPI narrative: Patient presents today complaining of several skin tears to the right forearm. Patient had a tree limb strike him in the forearm yesterday. He does have some right-sided weakness due to previous stroke. He quickly cleaned the area but wanted to have the areas evaluated. He is not up-to-date on his tetanus vaccine. Related Data Home Medications Medication Instructions Recorded Confirmed multivit with min-folic 1 tablet PO DAILY 09/15/19 05/13/24 acid-lutein 400 mcg-250 mcg chewable tablet (Centrum Silver) flecainide 100 mg tablet 50 mg PO Q12H 05/13/24 05/13/24 Allergies Allergy/AdvReac Type Severity Reaction Status Date / Time No Known Allergies Allergy Mild Verified 05/13/24 10:11 Review of Systems Review of Systems: CONSTITUTIONAL: Denies body aches, fever, chills, or sweats. EYES: Denies visual changes, redness, or discharge. ENT: Denies rhinorrhea, congestion, sore throat, or otalgia. CARDIOVASCULAR: Denies chest pain, palpitations, or edema. RESPIRATORY: Denies cough or dyspnea. GASTROINTESTINAL: Denies abdominal pain, nausea, vomiting, or diarrhea. GENITOURINARY: Denies dysuria or hematuria. SKIN: + skin tears to right arm MUSCULOSKELETAL: Denies back pain, joint pain, or myalgia. NEUROLOGIC: Denies headache, numbness, tingling, or weakness. PSYCH: Denies depression or anxiety. [facility] Past Medical History Medical History Colon polyp Current moderate episode of major depressive disorder without prior episode Essential hypertension Expressive aphasia H/O completed stroke Hx of retinal detachment Hyperlipidemia LDL goal <70 Paroxysmal atrial fibrillation Protein S deficiency Seizure disorder Family History Family History Mother Diabetes mellitus Heart disease Son History of blood clots Social History Social History Smoking packs per day: 2 Smoking cigarettes per day: 40.0 Years smoked: 30 Smoking pack-years: 60.00 Smoking status: Former smoker Tobacco type: cigarettes Second hand tobacco smoke exposure: No Smoking end date: 10/05/88 Alcohol intake: never Drinks per week: 35 Alcohol use details: 6 beers per day Substance use: never Substance use type: does not use Lack of Transportation: No Lack of Food: Never True Current Housing: I Have Housing Concerned About Future Housing: No Difficulty Paying Gas/Electric Bills: No Difficulty Paying for Meds: No Currently Unemployed: No Education: High School Diploma/GED Difficulty w/ Childcare or Family Care: No Living arrangements: with family Spiritual care concerns: No Comments At time of signature, I have reviewed and agree with nursing past medical, surgical, social and family history unless otherwise noted. Please see nursing chart for further information. There is no relevant family history pertinent to the presenting complaint Exam Narrative: GENERAL: Well-appearing, well-nourished, and in no acute distress. HEAD: Normocephalic, atraumatic. EYES: EOMI. No redness or drainage. Conjunctivae normal. ENT: Mucous membranes pink and moist. NECK: Normal AROM. CHEST: No respiratory distress. EXTREMITIES: Right forearm: 3 superficial skin tears to the anterior forearm, each measuring 1 cm, 1 cm, 3.5 cm respectively. Posterior forearm 1 skin tear measuring 7 cm linearly. No active bleeding. No edema, ecchymosis, erythema. Distal sensation intact. Capillary refill normal. Full AROM. SKIN: Warm, dry, no rash. Cap
[2024-05-13] MEDS: TETANUS,DIPHTHERIA,AC PERTUSSIS ADULT (0.5 ML) BOOSTRIX IM (10:29)
== END 2024-05-13 10:45 | disposition home or self-care (01) ==
PROVIDERS: Emergency Provider Nurse Practitioner; PCP Nurse Practitioner Family
DX: S51.811A Laceration without foreign body of right forearm, initial encounter (principal); W22.8XXA Striking against or struck by other objects, initial encounter; Z23 Encounter for immunization; Z87.891 Personal history of nicotine dependence; I10 Essential (primary) hypertension; E78.5 Hyperlipidemia, unspecified; I48.0 Paroxysmal atrial fibrillation
CPT/HCPCS: 90471; 90715; 99212; G0463

== ENCOUNTER 2024-10-13 09:23 | Outpatient (CLI) | payer MEDICARE, SELFPAY ==
--- NOTE | 2024-10-13 11:30 | NEURO_ITS ---
Clinical note: The patient is 68-year-old with history of paresthesias in the right upper limb. He also had a stroke and complaints of pain in the neck. He has some degree of spasticity in this arm. Please refer to details of EMG nerve can study given below. Summary of findings 1. Median motor distal latencies were moderately prolonged and amplitude was mildly decreased but conduction velocity were normal. Ulnar motor distal latency Was mildly prolonged,amplitude was normal. Conduction velocity from below elbow to wrist was normal and conduction velocity across elbow was mildly decreased.. 3. Right median and ulnar motor studies were also performed while comparing over 2nd lumbrical and interossei were median motor latency was prolonged compared to ulnar motor distal latency. 4. Right median palmar and digital sensory distal latencies were moderately prolonged amplitudes to significantly decreased. Conduction velocity also significant decreased. Right ulnar palmar sensory distal latency was normal however amplitude was significantly decreased. Right radial sensory distal latency was minimally prolonged but amplitude was normal. Right ulnar digital sensory distal latency was mildly prolonged but amplitude was moderately decreased. 5. EMG examination was performed using a monopolar needle electrode and various muscles examined in right upper limb in C5-T1 distribution which did not show any denervation changes. Mild decreased motor unit recruitment were seen in the abductor pollicis brevis. Impression: EMG and nerve can study on right upper limb is supportive of diagnosis of 1. Moderate right carpal tunnel syndrome . Mild decreased recruitment was noted in the right abductor pollicis brevis. 2. 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 Remainder of the findings are within normal limits. 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 Alfredo Cox MD, FAAN, FAANEM Neurologist / Electrodiagnostics Nerve Conduction Studies Motor Nerve Results ? Latency Amplitude F-Lat Segment Distance CV Comment Site (ms) (mV) (ms) (cm) (m/s) Right Median (APB) Motor Wrist 5.3 5.3 Elbow 10.0 4.4 Elbow-Wrist 250 53 Right Ulnar (ADM) Motor Wrist 4.3 10.2 Bel Elbow 9.1 10.2 Bel Elbow-Wrist 235 49 Abv Elbow 10.7 10.0 Abv Elbow-Bel Elbow 65 41 Right Ulnar 2 Ch. (ADM/FDI) Motor Wrist 4.3 10.2 Bel Elbow 9.1 10.2 Bel Elbow-Wrist 235 49 Abv Elbow 10.7 10.0 Abv Elbow-Bel Elbow 65 41 Motor Segments ? Delta-O Distance CV Segment (ms) (cm) (m/s) Norm Right Median (APB) Motor Elbow-Wrist 4.7 250 53 ?> 50 Right Ulnar (ADM) Motor Bel Elbow-Wrist 4.8 235 49 ?> 53 Abv Elbow-Bel Elbow 1.60 65 41 ?> 52 Right Ulnar 2 Ch. (ADM/FDI) Motor Bel Elbow-Wrist 4.8 235 49 ?> 53 Abv Elbow-Bel Elbow 1.60 65 41 ?> 52 Sensory Nerve Results ? Latency (Peak) Amplitude (P-P) Segment Distance CV Comment Site (ms) (?V) (cm) (m/s) Right Median DigIII Sensory Wrist-Dig III 5.6 13 Wrist-Dig III 150 27 Right Median-Ulnar Palmar Sensory ? Median Palm-Wrist 3.3 11 Palm-Wrist 80 24 ? Ulnar Palm-Wrist 2.2 6 Palm-Wrist 80 36 Right Radial Sensory Forearm-Wrist 2.3 22 Forearm-Wrist 100 43 Right Ulnar Sensory Wrist-Dig V 3.7 5 Wrist-Dig V 140 38 Sensory Segments ? Delta-P Distance CV (Peak) Segment (ms) (cm) (m/s) Norm Right Median DigIII Sensory Wrist-Dig III 150 27 - Right Median-Ulnar Palmar Sensory ? Median Palm-Wrist 80 24 - ? Ulnar Palm-Wrist 80 36 - Right Radial Sensory Forearm-Wrist 100 43 - Right Ulnar Sensory Wrist-Dig V 140 38 ?> 38 Electromyography ?Side Muscle Nerve Ins Act Fibs Psw Amp Dur Recrt Comment Right Deltoid Axillary Nml Nml Nml Nml Nml Nml Right Biceps Musculocut Nml Nml Nml Nml Nml Nml Right Triceps Radial Nml Nml Nml Nml Nml Nml Right Ext Digitorum Radial (Post Int) Nml Nml Nml Nml Nml Nml Right Ext Indicis Radial (Post Int) Nml Nml Nml Nml Nml Nml Right FlexPolLong Median (Ant Int) Nml Nml Nml Nml Nml Nml Right 1stDorInt Ulnar Nml Nml Nml Nml Nml Nml Right Abd Poll Brev Median Nml Nml Nml Decr >12ms +1 Right FlexDigProf Ulnar Nml Nml Nml Nml Nml Nml Right FlexCarRad Median Nml Nml Nml Nml Nml Nml MTDD
== END 2024-10-13 09:24 | disposition home or self-care (01) ==
PROVIDERS: PCP Nurse Practitioner Family; Visit Provider Psychiatry & Neurology Neurology
DX: G56.01 Carpal tunnel syndrome, right upper limb (principal); G56.21 Lesion of ulnar nerve, right upper limb
CPT/HCPCS: 95886; 95909

== ENCOUNTER 2025-01-27 11:41 | Emergency (ER) | payer MEDICARE, SELFPAY ==
--- NOTE | ~2025-01-27 | XR_ITS ---
Left ankle Technique: AP, oblique, and lateral views were obtained. Clinical History: Injury Findings: There is acute, oblique, and no stress fracture of the distal fibula at and just proximal t o the level ankle mortise. Ankle mortise itself demonstrates anatomic alignment. No other fracture se en. Soft tissues are otherwise unremarkable. Impression: Acute fracture of the distal fibula, as detailed above. Reviewed, dictated and finalized at location M. Impression: Acute fracture of the distal fibula, as detailed above.
[2025-01-27 11:55] VITALS: BP 165/92; PULSE 55; RESP 16; TEMP 36.6; O2SAT 99
--- NOTE | 2025-01-27 12:57 | ED_ITS ---
HPI - Extremity Injury (Lower) General Chief Complaint: Extremity Injury, Lower Stated Complaint: FALL Time Seen by Provider: 01/27/25 13:00 Source: patient and RN notes reviewed Mode of arrival: ambulatory Limitations: no limitations History of Present Illness HPI Narrative: 6-year-old male presents with concern for left ankle pain. He reports this morning he slipped on a ramp moving his garage and injured his left ankle. Reports left ankle swelling of the pain. MD complaint: ankle injury Related Data Home Medications ?Medication ?Instructions ?Recorded ?Confirmed ?Last Taken ?Type iwvbhmecgxoo-lioymeg-ofnsz acid 1 tablet PO DAILY 09/15/19 01/27/25 10/02/22 History 400 mcg-lutein 250 mcg chewable tablet (Centrum Silver) Allergies Allergy/AdvReac Type Severity Reaction Status Date / Time No Known Allergies Allergy Mild Verified 01/27/25 11:57 Review of Systems Review of Systems: CONSTITUTIONAL: Denies malaise, chills, sweats, or fever. SKIN: Denies rash or itching, open skin, laceration, abrasion, redness, warmth MUSCULOSKELETAL: Reports left ankle swelling and pain NEUROLOGIC: Denies numbness, weakness All systems reviewed & are unremarkable except as noted in HPI and below PMFSH Past Medical History Medical History Colon polyp Hx of retinal detachment Current moderate episode of major depressive disorder without prior episode Essential hypertension Expressive aphasia H/O completed stroke Hyperlipidemia LDL goal <70 Paroxysmal atrial fibrillation Protein S deficiency Seizure disorder Family History Family History Mother Diabetes mellitus Heart disease Son History of blood clots Social History Social History Smoking packs per day: 2 Smoking cigarettes per day: 40.0 Years smoked: 30 Smoking pack-years: 60.00 Smoking status: Former smoker Tobacco type: cigarettes Second hand tobacco smoke exposure: No Smoking end date: 10/05/88 Alcohol intake: current Drinks per week: 42 Alcohol use details: 6 beers per day Substance use: never Substance use type: does not use Do You Feel Safe in your Home?: Yes Lack of Transportation: No Lack of Food: Never True Current Housing: I Have Housing Concerned About Future Housing: No Difficulty Paying Gas/Electric Bills: No Difficulty Paying for Meds: No Currently Unemployed: No Education: High School Diploma/GED Difficulty w/ Childcare or Family Care: No Living arrangements: with family Gender identity (if verbalized by the patient): Male Spiritual care concerns: No Agree to blood products: Yes Comments At time of signature, agree with nursing past medical, surgical, social and family history. There is no relevant family history pertinent to the presenting complaint Exam Narrative: GENERAL: Well-appearing, well-nourished, and in no acute distress. HEAD: Normocephalic, atraumatic. EYES: PERRLA, conjunctivae clear NECK: Supple. CHEST: Speaks in full sentences. No respiratory distress. HEART: Regular rate and rhythm. Normal and equal peripheral pulses. EXTREMITIES: Left ankle, foot, digits have grossly normal strength and sensation, grossly normal range of motion. Lateral ankle edema or ecchymosis. 5/5 strength with digit flexion and extension. Normal sensation with sensitivity to light touch and pain. Lateral ankle tenderness. No open wounds, no skin ten ting, no devitalized tissue or atrophy, no trophic changes, no obvious deformity, alignment normal, nearby joints and structures intact. Distal pulses palpable and equal bilaterally, skin warm, dry, pink. Capillary refill less than 3 seconds. SKIN: Warm, dry, no rash. NEURO: Alert and oriented x3. PSYCH: Normal mood and affect Course Course Emergency Course: Patient has a history of a stroke and has paresthesia of the right arm and is not able to use crutches in order not bear weight on the left lower extremity. Dr. Gomez's office was called to see if they could see the patient today, they cannot. An order for a walking boot was sent to [place] [facility]. Patient is aware of diagnosis, understands and agrees to treatment plan. Anticipatory guidance given. Patient agrees to follow-up as directed and is aware of reasons to seek care at the emergency department. Portions of this record may have been created with voice recognition software Level of Care: Express Care Visit Vital Signs Vital signs: Vital Signs Temperature 97.8 F 01/27/25 11:55 Pulse Rate 55 L 01/27/25 11:55 Respiratory Rate 16 01/27/25 11:55 Blood Pressure 165/92 H 01/27/25 11:55 Pulse Oximetry 99 01/27/25 11:55 Oxygen Delivery Room Air 01/27/25 11:55 Temperature 97.8 F 01/27/25 11:55 Pulse Rate 55 L 01/27/25 11:55 Respiratory Rate 16 01/27/25 11:55 Blood Pressure 165/92 H 01/27/25 11:55 Pulse Oximetry 99 01/27/25 11:55 Oxygen Delivery Room Air 01/27/25 11:55 Reviewed. MDM - Extremity Injury (Lower) MDM Narrative Medical decision making narrative: The patient was evaluated by myself in the [facility] care. History is obtained from patient who is an independent historian and physical exam was performed.? Available medical records were reviewed at this time. ? Exam findings show no acute concerns or changes; patient is non-toxic appearing and is in no distress. Patient is appropriate for outpatient treatment and follow-up. ? I have evaluated and discussed social determinants of health with the patient that could potentially impact subsequent diagnosis and treatment plans. ? Patients injury and pain is consistent with musculoskeletal etiology. No signs of neurological or vascular compromise on exam. Compartments and tissues are soft without signs of compartment syndrome. Pain is felt appropriate for further evaluation on an outpatient basis. Imaging Data My impression: Images reviewed, interpreted by radiologist, agree, see report. Radiologist's impression: Left ankle Technique: AP, oblique, and lateral views were obtained. Clinical History: Injury Findings: There is acute, oblique, and no stress fracture of the distal fibula at and just proximal to the level ankle mortise. Ankle mortise itself demonstrates anatomic alignment. No other fracture seen. Soft tissues are otherwise unremarkable. Impression: Acute fracture of the distal fibula, as detailed above. Critical Care Time Critical Care Time Critical Care Time: No Discharge Plan Discharge Clinical Impression: Fibula fracture Patient Disposition: Home Condition: Stable Instructions: Ankle Fracture (ED) Additional Instructions: Please rest, ice and elevate the affected extremity. Please take Motrin 600mg every 8 hours, as needed, for pain (take with food). Follow up with Orthopedic Surgery in 1-2 days for further evaluation - please call for an appointment. Use crutches to avoid bearing weight on your left lower extremity. A prescription for a boot has been called in to the pharmacy. Please go to ER immediately for increased pain, tingling/numbness, swelling, redness, and fever Patient Language: Bruneian Prescriptions: New (DME) walking boot See Rx Instructions .Route .MEDSUPPLY Qty: 1 0RF Rx Instructions: As directed No Action atorvastatin 80 mg tablet See Rx Instructions .ROUTE .COMPLEX Qty: 90 1RF Dose Instruction: TAKE 1 TABLET BY MOUTH DAILY Rx Instructions: TAKE 1 TABLET BY MOUTH DAILY Centrum Silver 400-250 mcg tablet,chewable 1 tablet PO DAILY metoprolol tartrate 25 mg tablet See Rx Instructions .ROUTE .COMPLEX Qty: 30 5RF Dose Instruction: TAKE 1/2 TABLET BY MOUTH TWICE DAILY Rx Instructions: TAKE 1/2 TABLET BY MOUTH TWICE DAILY flecainide 100 mg tablet See Rx Instructions .ROUTE .COMPLEX Qty: 60 5RF Dose Instruction: TAKE 1 TABLET BY MOUTH EVERY 12 HOURS Rx Instructions: TAKE 1 TABLET BY MOUTH EVERY 12 HOURS Eliquis 5 mg tablet See Rx Instructions .ROUTE .COMPLEX Qty: 180 0RF Dose Instruction: TAKE 1 TABLET(5 MG) BY MOUTH TWICE DAILY Rx Instructions: TAKE 1 TABLET(5 MG) BY MOUTH TWICE DAILY Follow-up/Referrals: Anthony Gomez MD [Physician] - Cheyenne Almanza APRN [Primary Care Provider] - Time of Disposition: 13:19
== END 2025-01-27 13:30 | disposition home or self-care (01) ==
PROVIDERS: Emergency Provider Nurse Practitioner; PCP Nurse Practitioner Family
DX: S82.832A Other fracture of upper and lower end of left fibula, initial encounter for closed fracture (principal); I48.0 Paroxysmal atrial fibrillation; I10 Essential (primary) hypertension; Z87.891 Personal history of nicotine dependence; W01.0XXA Fall on same level from slipping, tripping and stumbling without subsequent striking against object, initial encounter
CPT/HCPCS: 73610; 99213; G0463